=== PATIENT | female | born 1945 | race African-American/Black ===

== ENCOUNTER 2018-03-07 10:32 | Day surgery (SDC) | payer MEDICARE ==
[2018-03-06 13:12] VITALS: BMI 43.7
[2018-03-07] MEDS ORDERED: PROPOFOL 200 MG/20 ML VIAL ONE (13:57)
[2018-03-07] MEDS ORDERED: Lidocaine 1% PF 5 ML VIAL ONE (13:57)
--- NOTE | 2018-03-07 15:10 | OP ---
DATE OF PROCEDURE: 03/07/2018 PROCEDURE: Colonoscopy with snare polypectomy and biopsy. SURGEON: Phoenix Loomis M.D. ANESTHESIA: Pain medication given per Anesthesiology Department. PREOPERATIVE DIAGNOSIS: Diarrhea, unexplained. POSTOPERATIVE DIAGNOSES: 1. Multiple colon polyps (7), removed. 2. Sigmoid diverticulosis with severe luminal narrowing and constriction. PROCEDURE IN DETAIL: A written consent was obtained prior to procedure. After adequate sedation, re ctal exam performed was normal. Endoscope was advanced to the cecum with great difficulty going arou nd the sigmoid colon because of the severe constriction. The cecum was visualized and appeared mehran l. In the cecum, 4 sessile polyps ranging between 4-6 mm were noted and removed with snare electroca utery with good hemostasis. Two additional ascending colon polyps were removed with snare electrocau lynn with good hemostasis. There was one 5 mm sessile polyp noted in the transverse colon that was r emoved with snare electrocautery with good hemostasis. All polyps were retrieved. The ascending, tr ansverse and descending colon appeared normal. Biopsies were obtained to evaluate for microscopic co litis. There are numerous diverticula noted in the sigmoid colon with severe constriction of the col on lumen. The rectal vault appeared normal including retroflexion. The patient tolerated the proced ure well. ASSESSMENT: 1. Sigmoid diverticulosis with severe sigmoid stricturing and constriction. 2. Seven polyps removed. PLAN: Await biopsy result.
== END 2018-03-07 15:31 | disposition home or self-care (01) ==
LOC: SDC 10:32
PROVIDERS: ATTEND Internal Medicine Gastroenterology
PROC: 0DBK8ZX Excision of Ascending Colon, Via Natural or Artificial Opening Endoscopic, Diagnostic (ICD-10-PCS; principal; 2018-03-07)
PROC: 0DBL8ZX Excision of Transverse Colon, Via Natural or Artificial Opening Endoscopic, Diagnostic (ICD-10-PCS; 2018-03-07)
PROC: 0DBH8ZX Excision of Cecum, Via Natural or Artificial Opening Endoscopic, Diagnostic (ICD-10-PCS; 2018-03-07)
PROC: 0DBN8ZX Excision of Sigmoid Colon, Via Natural or Artificial Opening Endoscopic, Diagnostic (ICD-10-PCS; 2018-03-07)
DX: K52.9 Noninfective gastroenteritis and colitis, unspecified (principal); D12.0 Benign neoplasm of cecum; D12.2 Benign neoplasm of ascending colon; K57.30 Diverticulosis of large intestine without perforation or abscess without bleeding; I10 Essential (primary) hypertension; E11.9 Type 2 diabetes mellitus without complications; Z79.52 Long term (current) use of systemic steroids; Z91.040 Latex allergy status; Z88.2 Allergy status to sulfonamides; Z91.041 Radiographic dye allergy status; Z88.5 Allergy status to narcotic agent; Z88.8 Allergy status to other drugs, medicaments and biological substances; Z79.899 Other long term (current) drug therapy
CPT/HCPCS: 88305; J2001; J2704

== ENCOUNTER 2018-03-12 14:25 | Emergency (ER) | payer MEDICARE ==
[~2018-03-12 14:25] MED LIST: Gadobenate Dimeglumine 529 MG/1 ML (20ML VIAL) ONE
[2018-03-12 15:19] LABS: #Eosinphils 0.1 thou/uL (0.0-0.7); #Monocytes 0.6 thou/uL (0.11-0.59); #Neutrophils 4.3 thou/uL (1.40-6.50); %Basophils 0.6 % (0.0-1.0); %Eosinophils 1.8 % (0.0-10.0); %Lymphocytes 28.7 % (21.0-51.0); %Monocytes 7.8 % (0.0-10.0); %Neutrophils 61.1 % (42.0-75.0); Hemoglobin 13.2 g/dL (12.0-16.0); Mean Corpuscular HGB CONC 32.8 g/dL (32.0-36.0); Mean Corpuscular Hemoglobin 29.5 pg (27.0-31.0); Mean Corpuscular Volume 89.9 fL (78.0-98.0); Mean Platelet Volume 7.9 fL (7.4-10.4); Platelet Count 203 thou/uL (130-400); RBC Distribution Width 13.1 % (11.5-14.5); Red Blood Cell (RBC) Count 4.46 mill/uL (4.20-5.40); White Blood Cell (WBC) Count 7.1 thou/uL (4.8-10.8)
[2018-03-12 15:41] LABS: ALT (SGPT) 12 U/L (8-55); AST (SGOT) 11 U/L (5-34); Albumin 3.6 g/dL (3.4-4.8); Alkaline Phosphatase 106 U/L (40-150); Anion Gap 12 mmol/L (10-20); BUN (Urea Nitrogen) 11 mg/dL (9.8-20.1); Bilirubin, Total 0.4 mg/dL (0.2-1.2); Calc. Creatinine Clearance 0 mL/min (70-130); Calcium 9.6 mg/dL (7.8-10.44); Carbon Dioxide 23 mmol/L (23-31); Chloride 109 mmol/L (98-107); Estimated GFR-MDRD 82; Globulin 3.1 g/dL (2.4-3.5); Glucose 198 mg/dL (83-110); Potassium 4.2 mmol/L (3.5-5.1); Protein, Total 6.7 g/dL (6.0-8.3); Sodium 140 mmol/L (136-145)
--- NOTE | 2018-03-12 17:48 | CT ---
CT BRAIN WITHOUT CONTRAST: Date: 03/12/18 HISTORY: Headache. FINDINGS: Comparison made with exam of 12/31/14. Changes of cortical atrophy and chronic small vessel ischemic disease are again noted. The ventricula r size is appropriate and the basilar cisterns are patent. No evidence of acute infarct, hemorrhage, midline shift, or abnormal extra-axial fluid collections ar e seen. The bony calvarium is intact. The visualized paranasal sinuses and mastoid air cells are well aerated. IMPRESSION: No CT evidence of acute intracranial process. POS: [facility]
--- NOTE | 2018-03-12 22:10 | MRI ---
MRI BRAIN WITH AND WITHOUT CONTRAST: INDICATIONS: History of headaches. COMPARISON: Prior CT brain dated 03/12/2018. TECHNIQUE: Multiplanar, multisequence MR images were obtained of the brain with and without contrast, utilizing 20 mL of MultiHance. FINDINGS: No area of restricted diffusion is evident. There is mild chronic small vessel white matter ischemic change. The septum pellucidum and third ventricle are midline. The intracranial arterial flow voids appear within normal limits. There are small bilateral mastoid effusions. A small mucus retention cyst is seen within the right sphenoid sinus. No area of abnormal enhancement is demonstrated. IMPRESSION: 1. No acute intracranial abnormality. 2. Mild paranasal sinus disease. 3. Bilateral mastoid effusion. 4. Mild chronic small vessel white matter ischemic change. POS: [facility]
== END 2018-03-12 22:38 | disposition home or self-care (01) ==
LOC: ERS 14:25
DX: G43.909 Migraine, unspecified, not intractable, without status migrainosus (principal); E11.9 Type 2 diabetes mellitus without complications; E78.5 Hyperlipidemia, unspecified; I10 Essential (primary) hypertension; Z79.899 Other long term (current) drug therapy
CPT/HCPCS: 36415; 70450; 70553; 80053; 85025; 96365; 96375; A9579

== ENCOUNTER 2018-04-20 12:41 | Outpatient (CLI) | payer MEDICARE ==
--- NOTE | 2018-04-20 14:54 | MRI ---
CERVICAL SPINE WITHOUT CONTRAST; HISTORY: Neck pain. Cervical disk displacement. COMPARISON: None. TECHNIQUE: Multiplanar, multisequence MR images were obtained of the cervical spine without contrast. FINDINGS: Artifact from hardware is seen in the cervical spine, limiting evaluation. The vertebral bodies demo nstrate normal gross height without significant subluxation. The visualized cord demonstrates normal signal throughout. The craniocervical junction is unremarkab le. The paraspinal soft tissues are unremarkable. C2-C3: A moderate central protrusion is seen. No posterior facet arthrosis. Mild bilateral neural foraminal stenosis. Moderate central canal stenosis. C3-C4: A moderate disk osteophyte complex is seen. Artifact limits evaluation at this level. Mild bilateral posterior facet arthrosis. Mild central canal stenosis. The neural foramina cannot be yung quately assessed. C4-C5: This level appears fused. No posterior facet arthrosis. Artifact is seen within the central canal, from the hardware. There does not appear to be significant central canal stenosis or neural foraminal stenosis at this level. C5-C6: A moderate disk osteophyte complex is seen. No posterior facet arthrosis. Moderate central canal stenosis. Mild bilateral neural foraminal stenosis. C6-C7: This level cannot be assessed secondary to significant artifact. There is an appearance of c entral canal stenosis but this may be over-exaggerated. Mild bilateral posterior facet arthrosis. T he neural foramina cannot be assessed. POS: [facility]
== END 2018-04-20 12:42 | disposition home or self-care (01) ==
LOC: TBSIIMAG 12:41
PROVIDERS: ATTEND Psychiatry & Neurology Neurology
DX: M50.23 Other cervical disc displacement, cervicothoracic region (principal); R51 Headache
CPT/HCPCS: 72141

== ENCOUNTER 2018-11-01 09:15 | Outpatient (CLI) | payer MEDICARE ==
--- NOTE | 2018-11-01 11:11 | RAD ---
LEFT HEEL 2 VIEWS: Date: 11/01/18 HISTORY: Plantar fascial fibromatosis with left heel pain. COMPARISON: Right heel 2 views. FINDINGS: Calcaneal plantar and Achilles enthesophytes. There is minimally more prominent focal soft tissue swe lling more superficially overlying the heel on the plantar surface when compared to the right side. N o evidence for acute fracture or dislocation. IMPRESSION: Degenerative changes. Minimal soft tissue swelling of the plantar surface of the heel. No fracture or dislocation. POS: [facility]
--- NOTE | 2018-11-01 11:18 | RAD ---
RIGHT HEEL 2 VIEWS: Date: 11/01/18 HISTORY: Plantar fascial fibromatosis. FINDINGS: There is hypertrophy of the calcaneus at the plantar aponeurosis insertion site, as well as the Achil les tendon insertion site. No fracture. IMPRESSION: Changes of the calcaneus as described above. POS: [facility]
== END 2018-11-01 09:16 | disposition home or self-care (01) ==
LOC: BICRAD 09:15
PROVIDERS: ATTEND Podiatrist
DX: M72.2 Plantar fascial fibromatosis (principal); M19.072 Primary osteoarthritis, left ankle and foot; M79.89 Other specified soft tissue disorders

== ENCOUNTER 2019-03-31 13:46 | Inpatient (IN) | payer MEDICARE ==
[~2019-03-31 13:46] MED LIST changes: -Gadobenate Dimeglumine 529 MG/1 ML (20ML VIAL) ONE; +ISOVUE-370 76%-LOCM 1 ML ONE
[2019-03-31 14:01] LABS: #Basophils 0.1 thou/uL (0.0-0.2); #Eosinphils 0.2 thou/uL (0.0-0.7); #Lymphocytes 1.9 thou/uL (1.20-3.40); #Monocytes 0.5 thou/uL (0.11-0.59); #Neutrophils 3.4 thou/uL (1.40-6.50); %Basophils 0.9 % (0.0-1.0); %Eosinophils 2.7 % (0.0-10.0); %Lymphocytes 31.4 % (21.0-51.0); %Neutrophils 55.9 % (42.0-75.0); Hemoglobin 13.4 g/dL (12.0-16.0); Mean Corpuscular HGB CONC 33.5 g/dL (32.0-36.0); Mean Corpuscular Hemoglobin 29.9 pg (27.0-31.0); Mean Corpuscular Volume 89.2 fL (78.0-98.0); Mean Platelet Volume 8.7 fL (7.4-10.4); Platelet Count 193 thou/uL (130-400); RBC Distribution Width 13.1 % (11.5-14.5); Red Blood Cell (RBC) Count 4.47 mill/uL (4.20-5.40)
[2019-03-31] MEDS ORDERED: Dextrose 50% Abboject 50 ML SYRINGE ONE (14:01)
--- NOTE | 2019-03-31 14:09 | CT ---
Exam: Head CT without contrast HISTORY: Level 1 stroke. Left-sided weakness. Left arm draped, onset 1245 today COMPARISON: 03/12/2018 FINDINGS: Hemorrhage: No intraparenchymal hemorrhage or extra-axial hematoma. Brain parenchyma: Cortical wiley-white matter differentiation is preserved. No mass effect or midline shift. Basilar cisterns are patent. Ventricular system: Ventricles and sulci are patent and symmetric. Calvarium: Intact. Sinuses and mastoid air cells: Adequate aeration. IMPRESSION: No acute intracranial process. Results of study discussed with Dr. Jimenes 03/31/2019 at 2:06 PM Code CR
[2019-03-31 14:10] LABS: PTT 31.7 SEC (22.9-36.1); Prothrombin Time 14.3 SEC (12.0-14.7)
[2019-03-31 14:11] LABS: INR-International Normal Ratio 1.1
[2019-03-31 14:19] LABS: ALT (SGPT) 9 U/L (8-55); AST (SGOT) 14 U/L (5-34); Albumin 3.5 g/dL (3.4-4.8); Alkaline Phosphatase 76 U/L (40-150); Anion Gap 12 mmol/L (10-20); BUN (Urea Nitrogen) 11 mg/dL (9.8-20.1); Bilirubin, Total 0.5 mg/dL (0.2-1.2); CK (CPK) 111 U/L (29-168); Calc. Creatinine Clearance 0 mL/min (70-130); Calcium 9.5 mg/dL (7.8-10.44); Carbon Dioxide 22 mmol/L (23-31); Chloride 109 mmol/L (98-107); Estimated GFR-MDRD Greater than 90; Globulin 3.1 g/dL (2.4-3.5); Potassium 4.2 mmol/L (3.5-5.1); Protein, Total 6.6 g/dL (6.0-8.3); Sodium 139 mmol/L (136-145)
[2019-03-31 14:21] LABS: Glucose 46 mg/dL (83-110)
--- NOTE | 2019-03-31 14:27 | CT ---
CT ANGIOGRAM HEAD: CT ANGIOGRAM NECK: HISTORY: Level I stroke. Left arm drift. Left-sided weakness. COMPARISON: None. TECHNIQUE: CT angiogram of the head and neck are performed in the axial plane. Three-dimensional reformatted im ages are submitted for interpretation. FINDINGS: HEAD: No pathologic enhancement of the brain parenchyma. CT SOFT TISSUE NECK: Bilateral ocular lenses are appropriately located. Both globes are intact. Re trobulbar fat is preserved. Symmetric attenuation of the optic nerves and ocular rectus muscles. Aerodigestive tract is patent. No mucosal abnormality. Limited evaluation of the oral cavity due to dental amalgam artifact. Midline fatty raphae of the tongue is preserved. Epiglottis has a normal caliber. Pre-epiglottic fat is preserved. There is nonspecific fluid anterior to the C2 and C3 level, where there is evidence of a large osteophyte. Fluid is only contained to this level and may be reactive secondary to a large osteophyte. Symmetric attenuation of the parotid and submandibu lar glands. Symmetric attenuation of the sternocleidomastoid muscles. No evidence of lymphadenopathy by size criteria. Unremarkable thyroid gland. Upper mediastinum and lung apices are unremarkable. Cervical spine vertebral body height is maintained. There is evidence of post surgical change at C4, C5, and C6. Extensive osteophyte formation throughout the cervical spine. Th ere appears to be significant calcification along the posterior longitudinal ligament. There are varying degrees of moderate to severe central canal stenosis. Limited evaluation due to technique. There is also evidence of severe central canal stenosis in the upper thoracic spine due to posterior osteophyte formation. CT ANGIOGRAM: The visualized aortic arch has appropriate enhancement and luminal diameter. Right carotid: The right carotid artery origin, innominate artery, common carotid artery, carotid bi furcation and internal carotid artery have appropriate enhancement and luminal diameter. Minimal atherosclerosis in the right carotid bifurcation. Left carotid: The left carotid artery origin, common carotid artery, carotid bifurcation and interna l carotid artery have appropriate enhancement and luminal diameter. There is atherosclerosis of the left carotid bifurcation. Bilateral cervical vertebral arteries are patent throughout their course i n the neck. No significant stenosis. Bilateral subclavian arteries are unremarkable. HEAD: Distal cervical and intracranial internal carotid arteries have appropriate enhancement and emi jeff diameter. Anterior circulation: Symmetric enhancement and luminal diameter of the A1 and M1 segments. Proxima l A2 segments and proximal MCA branches have symmetric enhancement and luminal diameter. Posterior circulation: The visualized left PICA artery origin is unremarkable. Both vertebral arter ies supply a normal caliber basilar artery. Bilateral P1 segments have symmetric enhancement and luminal diameter. IMPRESSION: 1. Unremarkable CT angiogram of the head. 2. Unremarkable CT angiogram of the neck. No significant stenosis based upon NASCET criteria. 3. Extensive osteophyte formation and calcification of the posterior longitudinal ligament throughou t the cervical spine. Correlate for possible ankylosing spondylitis, given the overall degree of fusion changes. There is significant central canal stenosis and foraminal narrowing throughout the c ervical spine, incompletely evaluated. The results of the study were discussed with Dr. Jimenes on 03/31/2019 at 2:25 p.m. CODE CR Transcribed Date/Time: 03/31/2019 3:38 PM
[2019-03-31] MEDS ORDERED: Nitroglycerin 2% Ointment 1 INCH/1 GM Packet ONE (14:39)
[2019-03-31] MEDS ORDERED: Labetalol HCl 100 MG/20 ML VIAL ONE (15:55)
[2019-03-31] MEDS ORDERED: Aspirin 325 MG TAB ONE (15:55)
[2019-03-31 16:05] LABS: Bilirubin Negative (Negative); Blood, Urine Negative (Negative); Clarity Clear (Clear); Glucose, Urine (Dipstick) 100 mg/dL (Negative); Leukocyte Negative Leu/uL (Negative); Nitrite Negative (Negative); Protein, Urine (Dipstick) Negative (Neg-Trace); Urobilinogen Normal mg/dL (Less than 2)
[2019-03-31] MEDS ORDERED: niCARdipine 20MG In NaCl 20 MG/200 ML BAG ONE (16:11)
[2019-03-31 17:50] LABS: Troponin I Less than 0.010 ng/mL (< 0.028)
[2019-03-31] MEDS ORDERED: Acetaminophen 325 MG TAB PO PRN (18:45)
[2019-03-31] MEDS ORDERED: Ondansetron ODT 4 MG TAB SL PRN (18:45)
[2019-03-31] MEDS ORDERED: Sodium Chloride 0.9% 1,000 ML IV SCH (18:45)
[2019-03-31] MEDS ORDERED: Ondansetron PF 4 MG/2 ML Vial IVP PRN ×2 (18:45→19:51)
[2019-03-31] MEDS ORDERED: niCARdipine 20MG In NaCl 20 MG/200 ML BAG IVPB SCH (19:15)
[2019-03-31] MEDS ORDERED: Guaifenesin DM 100-10/5 ML UDCUP PO PRN (19:51)
[2019-03-31] MEDS ORDERED: Enalaprilat Dihydrate 1.25 MG/ML VIAL SLOW IVP PRN (19:51)
[2019-03-31] MEDS ORDERED: HYDROcodone/Acetaminophen 5/325 mg Tablet PO PRN (19:51)
[2019-03-31] MEDS ORDERED: Senokot S 8.6-50 MG TAB PO PRN (19:51)
[2019-03-31] MEDS ORDERED: Dextrose 50% Abboject 50 ML SYRINGE SLOW IVP PRN (19:51)
[2019-03-31] MEDS ORDERED: Bisacodyl 10 MG SUPP PR PRN (19:51)
[2019-03-31] MEDS ORDERED: Dextrose 5% in Water 1,000 ML IV PRN (19:51)
[2019-03-31] MEDS ORDERED: hydrALAZINE 20 MG/ML VIAL SLOW IVP PRN (19:51)
[2019-03-31] MEDS ORDERED: niCARdipine 25 MG in Sodium Chloride 0.9% 250 ML 250 ML IVPB SCH (20:00)
[2019-03-31] MEDS: Acetaminophen 325 MG TAB PO PRN (21:01)
[2019-03-31] MEDS: Nitroglycerin 2% Ointment 1 INCH/1 GM Packet TOP SCH (21:02)
[2019-03-31] MEDS: Carvedilol 25 MG TAB PO SCH (21:02)
[2019-03-31] MEDS: Famotidine 20 MG TAB PO SCH (21:02)
[2019-03-31] MEDS: Atorvastatin Calcium 40 MG TAB PO SCH (21:02)
--- NOTE | 2019-03-31 22:01 | HP ---
REASON FOR ADMISSION: TIA, hypertensive emergency, hypoglycemia, metabolic acidosis. HISTORY OF PRESENTING ILLNESS: The patient gives history of having off and on headaches from this morning. She had gone to [employer] with her friend. She got off around 10:45 p.m. While she was trying to get out of her car, patient developed slurred speech and became very weak. She could not walk. She also developed left facial droop and left-sided weakness. EMS was summoned. When EMS arrived, the patient's fingerstick glucose was 65. She was given dextrose 1 dose and on arrival in the ER, patient had level 1 stroke alert. She has had CT brain and CT angio brain both done, which showed no evidence of acute CVA. The patient's symptoms completely resolved on arrival. Initial NIH was 5 when EMS arrived with current NIH score of 0. On arrival in ER, patient's fingerstick glucose was 53, later serum sugars came back at 46. She was given another dose of D50 and a regular meal. A fingerstick later showed levels of 130. The patient also had systolic blood pressures of 204. She was placed on Cardene drip and nitroglycerin paste. Currently, she is feeling better. She was also confused on arrival. She is oriented and is responding well to questions now. PAST MEDICAL AND SURGICAL HISTORY: Diabetes mellitus type 2, dyslipidemia, obesity, prior history of neck surgery likely chronic cervical spondylosis, cholecystectomy, hysterectomy, gout. CURRENT MEDICATIONS: The patient is on: 1. K-Dur 20 mEq on alternate days. 2. Lasix 40 mg daily. 3. Crestor 5 mg daily. 4. Carvedilol 6.25 mg twice daily. 5. Benicar 40 mg p.o. daily. 6. Glimepiride 4 mg p.o. daily. 7. Colestipol 1 g twice daily. 8. Clonidine 0.1 mg p.o. q.a.m. and 2 tablets p.o. q.p.m. 9. Allopurinol 100 mg p.o. daily. 10. Ultram 50 mg daily. ALLERGIES: NO KNOWN DRUG ALLERGIES. PERSONAL HISTORY: Does not abuse alcohol or drugs. No history of smoking. FAMILY HISTORY: Mother at the age of 74. Father at the age of 73 years. He has had history of massive stroke. CODE STATUS: Do not attempt to resuscitate. I have discussed this with the patient at bedside in ER room #12/. Power of mergers and acquisitions attorney is her brother, Mr. Yossi Nair. REVIEW OF SYSTEMS: CONSTITUTIONAL: Negative for weight loss or gain, ability to conduct usual activities. SKIN: Negative for rash, itching. EYES: Negative for double vision, pain. ENT/MOUTH: Negative for nose bleeding, neck stiffness, pain, tenderness. CARDIOVASCULAR: Negative for palpitations, dyspnea on exertion, orthopnea. RESPIRATORY: Negative for shortness of breath, wheezing, cough, hemoptysis, fever or night sweats. GASTROINTESTINAL: Negative for poor appetite, abdominal pain, heartburn, nausea , vomiting, constipation, or diarrhea. GENITOURINARY: Negative for urgency, frequency, dysuria, nocturia. MUSCULOSKELETAL: Negative for pain, swelling. NEUROLOGIC/PSYCHIATRIC: Negative for anxiety, depression. ALLERGY/IMMUNOLOGIC: Negative for skin rash, bleeding tendency. PHYSICAL EXAMINATION: GENERAL: The patient is a 73-year-old female who is currently not in any acute distress. VITAL SIGNS: Blood pressure 210/104, pulse 56 per minute, respiratory rate 18 per minute, temperature 97.5 degrees Fahrenheit, saturating 97% on room air. NECK: Supple. No elevated JVD. HEENT: Eyes; extraocular muscles intact. Pupils reacting to light. Oral cavity mucous membranes are dry. No exudates or congestion. CARDIOVASCULAR: S1 and S2 heard. Regular rhythm. RESPIRATORY: Air entry 1+ bilateral. No rales or rhonchi. ABDOMEN: Soft, bowel sounds heard. No tenderness, rigidity, or guarding. EXTREMITIES: Mild peripheral edema. No calf tenderness. VASCULA: Peripheral pulses 1+ bilateral. No ischemic ulcerations or gangrene. CENTRAL NERVOUS SYSTEM: Cranial nerves are grossly intact. Motor system strength is 5/5 in all 4 extremities. Reflexes are 2+. Babinski is downgoing. Gait was not tested. Cerebellar signs are intact. PSYCHIATRIC: Patient's mood is a bit anxious, otherwise no hallucinations or delusions. LABS: Serum glucose 46, BUN 11, creatinine 0.7, serum bicarb 22. Troponin x2 negative. Albumin is 3.5. PT, INR, and PTT within normal limits. White count of 6, H and H 13 and 39, platelet count 193. IMAGING: CT brain without contrast done shows no acute intracranial process. CT angio brain was unremarkable. No significant stenosis was seen. Extensive osteophyte formation and calcification of the posterior longitudinal ligament throughout the cervical spine. Correlate for possible ankylosing spondylitis. There is significant central canal stenosis and foraminal narrowing throughout the C-spine. EKG, sinus bradycardia at 55 beats per minute. EKG is low voltage, questionable Q-waves in V2, V3. CLINICAL IMPRESSION AND PLAN: Patient will be admitted to ICU for hypertensive emergency with stroke-like symptoms and transient ischemic attack. Neurologically patient is intact with no acute CVA at present. She is on Cardene drip and nitroglycerin paste 1 inch on the chest wall. We will start patient on carvedilol 12.5 mg twice daily, Lasix 40 mg twice daily, Procardia XL 60 mg daily and Cozaar 100 mg daily. We will also place her on aspirin and Lipitor. MRI brain without contrast will be obtained for completion. Echo with 2D Doppler for LV function will be obtained. Lipid profile in the morning. NIH q.4 hourly checks. The patient's hypoglycemia appears to have resolved. We will check q.2 hourly fingerstick glucose and if the [id number] numbers are more than 200, this can be switched over to a.c. and at bedtime. She will be on a regular diet for tonight in view of hypoglycemia on arrival. Most likely, all her neurologic symptoms could be related to hypoglycemia. We will also consult Dr. Michelle for Neurology. Job ID: [id number] [facility]
[2019-04-01 06:06] LABS: Band 1 % (5-11); Eosinophils 1 % (0-10); Hemoglobin 12.6 g/dL (12.0-16.0); Lymphocytes 30 % (21-51); MDiff Complete? YES; Mean Corpuscular HGB CONC 33.4 g/dL (32.0-36.0); Mean Corpuscular Hemoglobin 29.6 pg (27.0-31.0); Mean Corpuscular Volume 88.7 fL (78.0-98.0); Monocytes 2 % (0-10); Neutrophil 66 % (42-75); Platelet Count 139 thou/uL (130-400); Platelet Morphology Comment Appears Adequate; RBC Distribution Width 13.1 % (11.5-14.5); RBC Morphology Normal; Red Blood Cell (RBC) Count 4.27 mill/uL (4.20-5.40); White Blood Cell (WBC) Count 7.4 thou/uL (4.8-10.8)
[2019-04-01 06:16] LABS: Anion Gap 12 mmol/L (10-20); BUN (Urea Nitrogen) 8 mg/dL (9.8-20.1); Calc. Creatinine Clearance 179 mL/min (70-130); Calcium 8.9 mg/dL (7.8-10.44); Carbon Dioxide 18 mmol/L (23-31); Cardiac Risk 2.5 (Less than 4.5); Chloride 111 mmol/L (98-107); Cholesterol 98 mg/dl (< 200 Desired); Estimated GFR-MDRD Greater than 90; Glucose 87 mg/dL (83-110); HDL Cholesterol 40 mg/dL (>60 Neg Risk); LDL Cholesterol, Calculated 47 mg/dL; Potassium 4.5 mmol/L (3.5-5.1); Sodium 136 mmol/L (136-145); Triglycerides 53 mg/dL (Less than 150)
[2019-04-01] MEDS: Losartan 25 MG TAB PO SCH (08:31)
[2019-04-01] MEDS: Allopurinol 100 MG TAB PO SCH (08:33)
[2019-04-01] MEDS: Famotidine 20 MG TAB PO SCH ×2 (08:33→20:27)
[2019-04-01] MEDS: Carvedilol 25 MG TAB PO SCH ×2 (08:33→20:23)
[2019-04-01] MEDS: Aspirin 81 mg Enteric Coated Tablet PO SCH (08:35)
[2019-04-01] MEDS: Enoxaparin Sodium 40 MG/0.4 ML SYRINGE SC SCH (08:35)
[2019-04-01] MEDS: Nitroglycerin 2% Ointment 1 INCH/1 GM Packet TOP SCH (08:35)
[2019-04-01] MEDS ORDERED: Furosemide 20 MG TAB PO SCH (09:00)
--- NOTE | 2019-04-01 10:36 | PDOC.HOSPP ---
- Subjective Encounter Date: 04/01/19 Encounter Time: 07:00 Subjective: is sitting and eating breakfast no sob or any weakness responds well to verbal stimuli - Objective Vital Signs & Weight: Vital Signs (12 hours) Temp 04/01/19 07:00 97.9 F 04/01/19 04:00 97.7 F 04/01/19 00:00 97.6 F Weight Weight 318 lb 9.087 oz Most Recent Monitor Data Heart Rate from ECG 67 NIBP 168/87 NIBP BP-Mean 114 Respiration from ECG 17 SpO2 99 I&O: 03/31/19 04/01/19 04/02/19 06:59 06:59 06:59 Intake Total 996 140 Output Total 950 0 Balance 46 140 Result Diagrams: 04/01/19 05:39 04/01/19 05:39 Additional Labs: Accuchecks 04/01/19 04/01/19 04/01/19 06:15 03:51 00:12 POC Glucose 78 109 116 H 03/31/19 03/31/19 03/31/19 21:58 18:57 17:50 POC Glucose 186 H 151 H 93 03/31/19 03/31/19 14:34 13:54 POC Glucose 114 H 53 L* ROS - Medication Medications: Active Medications Generic Name Dose Route Start Last Admin Trade Name Freq PRN Reason Stop Dose Admin Acetaminophen 650 mg 03/31/19 19:51 03/31/19 21:01 Tylenol PO 650 mg Q4H PRN Administration Headache/Fever/Mild Pain (1-3) Allopurinol 100 mg 04/01/19 09:00 04/01/19 08:33 Zyloprim PO 100 mg DAILY ELLEN Administration Aspirin 81 mg 04/01/19 09:00 04/01/19 08:35 Ecotrin PO 81 mg DAILY ELLEN Administration Atorvastatin Calcium 40 mg 03/31/19 21:00 03/31/19 21:02 Lipitor PO 40 mg HS ELLEN Administration Carvedilol 12.5 mg 03/31/19 21:00 04/01/19 08:33 Coreg PO 12.5 mg BID ELLEN Administration Enoxaparin Sodium 40 mg 04/01/19 09:00 04/01/19 08:35 Lovenox SC 40 mg 0900 ELLEN Administration Famotidine 20 mg 03/31/19 21:00 04/01/19 08:33 Pepcid PO 20 mg BID ELLEN Administration Furosemide 40 mg 04/01/19 09:00 04/01/19 08:32 Lasix PO 40 mg 0900,1400 ELLEN Administration Nicardipine HCl 25 mg/ Sodium 260 mls @ 0 mls/hr 03/31/19 20:00 03/31/19 21: 35 Chloride IVPB 260 mls INF ELLEN Administration Protocol Titrate Losartan Potassium 100 mg 04/01/19 09:00 04/01/19 08:31 Cozaar PO 100 mg DAILY ELLEN Administration Nitroglycerin 1 inch 03/31/19 21:00 04/01/19 08:35 Nitro-Bid 2% Ointment TOP 1 inch BID ELLEN Administration - Exam NAD, awake alert Eye: PERRL, anicteric sclera ENT: normocephalic atraumatic, no oropharyngeal lesions Neck: supple, no JVD Heart: RRR, no murmur, no rubs Respiratory: no wheezes, no rales Gastrointestinal: soft, non-tender, non-distended, normal bowel sounds Extremities: no cyanosis, no edema Neurological: CN's grossly intact, no focal deficits Psychiatric: normal affect, A&O x 3 Hosp A/P (1) Hypertensive emergency Code(s): I16.1 - HYPERTENSIVE EMERGENCY Status: Resolved (2) TIA (transient ischemic attack) Code(s): G45.9 - TRANSIENT CEREBRAL ISCHEMIC ATTACK, UNSPECIFIED Status: Resolved (3) Obesity Code(s): E66.9 - OBESITY, UNSPECIFIED Status: Chronic Qualifiers: Obesity classification: adult class 3 (BMI >= 40) (4) Hypoglycemia Code(s): E16.2 - HYPOGLYCEMIA, UNSPECIFIED Status: Resolved (5) DM type 2 (diabetes mellitus, type 2) Status: Chronic Qualifiers: Diabetes mellitus exterminator helper termite insulin use: without exterminator helper termite use (6) Dyslipidemia Code(s): E78.5 - HYPERLIPIDEMIA, UNSPECIFIED Status: Chronic - Plan is off cardene drip, sbp around 120's this am will tx to stroke unit is on asp, procardia xl, cozaar, coreg, lipitor will add home dm meds later this afternoon hypoglycemia has resolved mobilize as tolerated with PT will f/u MRI, echo results
[2019-04-01] MEDS ORDERED: HumaLOG 300 UNITS/3 ML VIAL SC PRN (12:29)
[2019-04-01] MEDS ORDERED: Dextrose 50% Abboject 50 ML SYRINGE SLOW IVP PRN (12:29)
--- NOTE | 2019-04-01 14:37 | MRI ---
Exam: Brain MRI without contrast HISTORY: TIA. CVA. Left-sided weakness. Slurred speech. COMPARISON: 03/12/2018 FINDINGS: Calvarial marrow signal intensity: Appropriate T1 signal Gradient echo sequence: No hemorrhage Brain parenchyma: No mass, mass effect or midline shift. Brain volume, age-appropriate. Cortical wiley-white matter differentiation: Preserved Restricted diffusion: Central arterial flow voids are maintained. Absent restricted diffusion White matter signal intensities: T2, FLAIR white matter hyperintensities due to chronic small vessel ischemic changes Sinuses: Adequate aeration of the paranasal sinuses and mastoid air cells. IMPRESSION: Absent restricted diffusion. No acute infarction.
--- NOTE | 2019-04-01 18:09 | CON ---
DATE OF CONSULTATION: 04/01/2019 CONSULTING PHYSICIAN: Hospitalist Service. IMPRESSION: 1. Transient left hand weakness and headache along with hypertension suggestive of hypertensive urgency. 2. Mild forgetfulness, which resulted in her forgetting her medication. PLAN: Recommended aspirin, but she refuses it due to problems with nose bleeds. HISTORY OF PRESENT ILLNESS: Ms. Vang is a 73-year-old black female with a known history of diabetes and hypertension, who was at [employer] when she started feeling poorly. She developed a headache and a feeling of dizziness. She started noticing some trouble with her left hand. The symptoms lasted about 30 minutes. She came in quite hypertensive after being put on a Cardene drip. Her blood pressure was brought under control. Her headache and dizziness resolved. She is not having any further focal symptoms. She denies a history of focal symptoms in the past. Her son reports that she is getting more forgetful. She lives alone and has care for her own medications. She apparently forgot to take her medicine prior to going to [employer]. PAST MEDICAL HISTORY: As listed above. ALLERGIES: NONE. SOCIAL HISTORY: No tobacco use. FAMILY HISTORY: Noncontributory. MEDICATION LIST: Reviewed. REVIEW OF SYSTEMS: Ten-system review of systems is otherwise negative. PHYSICAL EXAMINATION: VITAL SIGNS: Pulse 60 in normal sinus rhythm. Blood pressure 170/80s, respirations 14, and saturations 99%. HEENT: Pupils are equal and reactive. Conjunctivae clear. Oropharynx clear. NECK: Supple. EXTREMITIES: No cyanosis or edema. NEUROLOGIC: She is alert and cooperative. Her speech is fluent and clear. Cranial nerves are intact throughout. Motor exam shows equal strength. There is no fix or drift. She can stand independently. No abnormal movements are seen. DIAGNOSTIC STUDIES: MRI of the brain was notable for small-vessel ischemic changes, which were chronic, but nothing acute. CT angiogram showed no major vessel stenosis. Cholesterol ratio was 2.5. SUMMARY: This is an elderly lady, who likely had a hypertensive crisis due to forgetting her medications. She is back to her baseline. Her son will make attempts to provide some oversight at home to ensure that she is more consistent with her medication. Job ID: [id number]
[2019-04-01] MEDS: Atorvastatin Calcium 40 MG TAB PO SCH (20:22)
[2019-04-02] MEDS: Losartan 25 MG TAB PO SCH (08:20)
[2019-04-02] MEDS: Hydrochlorothiazide 25 MG TAB PO SCH (08:20)
[2019-04-02] MEDS: Carvedilol 25 MG TAB PO SCH ×2 (08:20→19:53)
[2019-04-02] MEDS: Famotidine 20 MG TAB PO SCH ×2 (08:20→19:54)
[2019-04-02] MEDS: NIFEdipine XL 60 MG TAB PO SCH (08:21)
[2019-04-02] MEDS: Enoxaparin Sodium 40 MG/0.4 ML SYRINGE SC SCH (08:21)
[2019-04-02] MEDS: Allopurinol 100 MG TAB PO SCH (08:21)
[2019-04-02] MEDS: Aspirin 81 mg Enteric Coated Tablet PO SCH (08:21)
[2019-04-02] MEDS: HumaLOG 300 UNITS/3 ML VIAL SC PRN (11:20)
[2019-04-02] MEDS ORDERED: Furosemide 40 MG/4 ML VIAL SLOW IVP SCH (13:30)
[2019-04-02] MEDS: hydrALAZINE 25 MG TAB PO SCH (19:53)
[2019-04-02] MEDS: Atorvastatin Calcium 40 MG TAB PO SCH (19:53)
--- NOTE | 2019-04-02 22:52 | PDOC.HOSPP ---
- Subjective Subjective: Patient says she generally has not been feeling great, but cannot be more specific. - Objective Vital Signs & Weight: Vital Signs (12 hours) Temp Pulse BP Pulse Ox 04/02/19 20:00 98.1 F 99 04/02/19 19:53 73 177/97 H 04/02/19 16:00 97.6 F 04/02/19 12:00 98.5 F Weight Weight 318 lb 9.087 oz Most Recent Monitor Data Heart Rate from ECG 76 NIBP 179/88 NIBP BP-Mean 118 Respiration from ECG 21 SpO2 100 I&O: 04/01/19 04/02/19 04/03/19 06:59 06:59 06:59 Intake Total 996 290 850 Output Total 506 3808 5947 Balance 87 -8184 -6596 Result Diagrams: 04/01/19 05:39 04/01/19 05:39 Additional Labs: Accuchecks 04/02/19 04/02/19 04/02/19 19:59 16:10 11:10 POC Glucose 182 H 118 H 165 H 04/02/19 05:59 POC Glucose 108 Hospitalist ROS - Medication Medications: Active Medications Generic Name Dose Route Start Last Admin Trade Name Freq PRN Reason Stop Dose Admin Acetaminophen 650 mg 03/31/19 19:51 03/31/19 21:01 Tylenol PO 650 mg Q4H PRN Administration Headache/Fever/Mild Pain (1-3) Allopurinol 100 mg 04/01/19 09:00 04/02/19 08:21 Zyloprim PO 100 mg DAILY ELLEN Administration Aspirin 81 mg 04/01/19 09:00 04/02/19 08:21 Ecotrin PO 81 mg DAILY ELLEN Administration Atorvastatin Calcium 40 mg 03/31/19 21:00 04/02/19 19:53 Lipitor PO 40 mg HS ELLEN Administration Carvedilol 12.5 mg 03/31/19 21:00 04/02/19 19:53 Coreg PO 12.5 mg BID ELLEN Administration Enoxaparin Sodium 40 mg 04/01/19 09:00 04/02/19 08:21 Lovenox SC 40 mg 0900 ELLEN Administration Famotidine 20 mg 03/31/19 21:00 04/02/19 19:54 Pepcid PO 20 mg BID ELLEN Administration Hydralazine HCl 25 mg 04/02/19 21:00 04/02/19 19:53 Apresoline PO 25 mg BID ELLEN Administration Hydrochlorothiazide 25 mg 04/02/19 09:00 04/02/19 08:20 Hydrochlorothiazide PO 25 mg DAILY ELLEN Administration Insulin Human Lispro 0 units 04/01/19 12:29 04/02/19 11:20 Humalog SC 2 unit .MODERATE SLIDING SC PRN Administration Moderate Correctional Scale Losartan Potassium 100 mg 04/01/19 09:00 04/02/19 08:20 Cozaar PO 100 mg DAILY ELLEN Administration Nifedipine 60 mg 04/02/19 09:00 04/02/19 08:21 Procardia Xl PO 60 mg DAILY ELLEN Administration - Exam General Appearance: NAD, awake alert Heart: RRR, no murmur, no gallops, no rubs, normal peripheral pulses Respiratory: CTAB, no wheezes, no rales, no ronchi, normal chest expansion, no tachypnea, normal percussion Gastrointestinal: soft, non-tender, non-distended, normal bowel sounds, no palpable masses, no hepatomegaly, no splenomegaly, no bruit Extremities: no cyanosis, no clubbing, no edema Skin: normal turgor, no lesions, no rashes Neurological: CN's grossly intact Musculoskeletal: normal tone, normal strength, no muscle wasting Psychiatric: normal affect Psychiatric - other findings: Forgetful and confused, but pleasant. Hosp A/P (1) DM type 2 (diabetes mellitus, type 2) Status: Chronic Qualifiers: Diabetes mellitus supervisor intermediates insulin use: without snf use (2) Dyslipidemia Code(s): E78.5 - HYPERLIPIDEMIA, UNSPECIFIED Status: Chronic (3) Obesity Code(s): E66.9 - OBESITY, UNSPECIFIED Status: Chronic Qualifiers: Obesity classification: adult class 3 (BMI >= 40) (4) Hypertensive emergency Code(s): I16.1 - HYPERTENSIVE EMERGENCY Status: Resolved (5) TIA (transient ischemic attack) Code(s): G45.9 - TRANSIENT CEREBRAL ISCHEMIC ATTACK, UNSPECIFIED Status: Resolved - Plan Consults: other Can move out of ICU to stroke floor whenever bed becomes available. On Procardia and ARB. Borderline resting bradycardia. Will not push the CCB or add BB. Add oral hydralazine as the pressure is still not well controlled. Difficult in that she is non-compliant due to memory issues. Will need CM assistance.
[2019-04-03] MEDS: Allopurinol 100 MG TAB PO SCH (08:30)
[2019-04-03] MEDS: Famotidine 20 MG TAB PO SCH ×2 (08:30→20:31)
[2019-04-03] MEDS: hydrALAZINE 25 MG TAB PO SCH ×2 (08:30→20:31)
[2019-04-03] MEDS: NIFEdipine XL 60 MG TAB PO SCH (08:30)
[2019-04-03] MEDS: Aspirin 81 mg Enteric Coated Tablet PO SCH (08:30)
[2019-04-03] MEDS: Hydrochlorothiazide 25 MG TAB PO SCH (08:31)
[2019-04-03] MEDS: Carvedilol 25 MG TAB PO SCH ×2 (08:31→20:31)
[2019-04-03] MEDS: Losartan 25 MG TAB PO SCH (08:31)
[2019-04-03] MEDS: Enoxaparin Sodium 40 MG/0.4 ML SYRINGE SC SCH (08:35)
--- NOTE | 2019-04-03 19:05 | PDOC.HOSPP ---
- Subjective Encounter Date: 04/03/19 Encounter Time: 18:50 Subjective: f/u for HTN urgency and TIA. Work up negative for acute CVA. Remains confused and wandering in halls per nursing. - Objective Vital Signs & Weight: Vital Signs (12 hours) Temp Pulse Pulse Pulse BP BP BP 04/03/19 15:17 96.6 F L 04/03/19 11:28 96.7 F L 04/03/19 09:13 80 78 157/87 H 165/75 H 04/03/19 08:30 73 157/91 H 04/03/19 08:00 Pulse Ox Pulse Ox Pulse Ox 04/03/19 15:17 04/03/19 11:28 04/03/19 09:13 95 95 04/03/19 08:30 04/03/19 08:00 92 L Weight Weight 318 lb 9.087 oz Most Recent Monitor Data Heart Rate from ECG 81 NIBP 168/97 NIBP BP-Mean 120 Respiration from ECG 15 SpO2 98 I&O: 04/02/19 04/03/19 04/04/19 06:59 06:59 06:59 Intake Total 284 351 9098 Output Total 3125 4230 0 Balance -2835 -3380 1000 Result Diagrams: 04/01/19 05:39 04/01/19 05:39 Additional Labs: Accuchecks 04/03/19 04/03/19 04/03/19 16:52 10:43 06:43 POC Glucose 154 H 193 H 148 H 04/02/19 19:59 POC Glucose 182 H Radiology Reviewed by me: Yes (MRI brain - no acute process) EKG Reviewed by me: Yes (Tele - SR) Hospitalist ROS - Medication Medications: Active Medications Generic Name Dose Route Start Last Admin Trade Name Freq PRN Reason Stop Dose Admin Acetaminophen 650 mg 03/31/19 19:51 03/31/19 21:01 Tylenol PO 650 mg Q4H PRN Administration Headache/Fever/Mild Pain (1-3) Allopurinol 100 mg 04/01/19 09:00 04/03/19 08:30 Zyloprim PO 100 mg DAILY ELLEN Administration Aspirin 81 mg 04/01/19 09:00 04/03/19 08:30 Ecotrin PO 81 mg DAILY ELLEN Administration Atorvastatin Calcium 40 mg 03/31/19 21:00 04/02/19 19:53 Lipitor PO 40 mg HS ELLEN Administration Carvedilol 12.5 mg 03/31/19 21:00 04/03/19 08:31 Coreg PO 12.5 mg BID ELLEN Administration Enoxaparin Sodium 40 mg 04/01/19 09:00 04/03/19 08:35 Lovenox SC 40 mg 0900 ELLEN Administration Famotidine 20 mg 03/31/19 21:00 04/03/19 08:30 Pepcid PO 20 mg BID ELLEN Administration Hydralazine HCl 25 mg 04/02/19 21:00 04/03/19 08:30 Apresoline PO 25 mg BID ELLEN Administration Hydrochlorothiazide 25 mg 04/02/19 09:00 04/03/19 08:31 Hydrochlorothiazide PO 25 mg DAILY ELLEN Administration Insulin Human Lispro 0 units 04/01/19 12:29 04/02/19 11:20 Humalog SC 2 unit .MODERATE SLIDING SC PRN Administration Moderate Correctional Scale Losartan Potassium 100 mg 04/01/19 09:00 04/03/19 08:31 Cozaar PO 100 mg DAILY ELLEN Administration Nifedipine 60 mg 04/02/19 09:00 04/03/19 08:30 Procardia Xl PO 60 mg DAILY ELLEN Administration - Exam General Appearance: NAD, awake alert Eye: PERRL, anicteric sclera ENT: normocephalic atraumatic, no oropharyngeal lesions Neck: supple, symmetric, no JVD, no thyromegaly Heart: RRR, no murmur, no gallops, no rubs, normal peripheral pulses Respiratory: CTAB, no wheezes, no rales, no ronchi Gastrointestinal: soft, non-tender, non-distended, normal bowel sounds Extremities: no cyanosis, 1+ LE edema Skin: normal turgor, no lesions Neurological: CN's grossly intact, no new deficit Psychiatric: oriented to person, oriented to place Hosp A/P (1) TIA (transient ischemic attack) Code(s): G45.9 - TRANSIENT CEREBRAL ISCHEMIC ATTACK, UNSPECIFIED Status: Acute Plan: Continue ASA/Lipitor (2) HTN (hypertension) Code(s): I10 - ESSENTIAL (PRIMARY) HYPERTENSION Status: Chronic Qualifiers: Hypertension type: essential hypertension Qualified Code(s): I10 - Essential (primary) hypertension Plan: Continue current BP regimen, titrate to optimal response (3) Hypertensive emergency Code(s): I16.1 - HYPERTENSIVE EMERGENCY Status: Resolved Plan: Resolved (4) DM type 2 (diabetes mellitus, type 2) Status: Chronic Qualifiers: Diabetes mellitus intermediate insulin use: without evs tech use Plan: ISS, serial accuchecks - Plan PT/OT, social work associate, DVT proph w/SCDs Stable currently Continue ASA/Lipitor Titrate BP regimen for optimal response CM for assistance with SNF options PT for functional assessment
[2019-04-03] MEDS: Acetaminophen 325 MG TAB PO PRN (20:30)
[2019-04-03] MEDS: Atorvastatin Calcium 40 MG TAB PO SCH (20:31)
[2019-04-04] MEDS: Aspirin 81 mg Enteric Coated Tablet PO SCH (09:41)
[2019-04-04] MEDS: Allopurinol 100 MG TAB PO SCH (09:41)
[2019-04-04] MEDS: Carvedilol 25 MG TAB PO SCH ×2 (09:42→22:34)
[2019-04-04] MEDS: hydrALAZINE 25 MG TAB PO SCH ×2 (09:42→22:34)
[2019-04-04] MEDS: Enoxaparin Sodium 40 MG/0.4 ML SYRINGE SC SCH (09:42)
[2019-04-04] MEDS: Famotidine 20 MG TAB PO SCH ×2 (09:42→22:34)
[2019-04-04] MEDS: Hydrochlorothiazide 25 MG TAB PO SCH (09:43)
[2019-04-04] MEDS: Losartan 25 MG TAB PO SCH (09:43)
[2019-04-04] MEDS: NIFEdipine XL 60 MG TAB PO SCH (09:44)
[2019-04-04] MEDS: HumaLOG 300 UNITS/3 ML VIAL SC PRN (11:29)
--- NOTE | 2019-04-04 15:40 | PDOC.HOSPP ---
- Subjective Encounter Date: 04/04/19 Encounter Time: 15:30 Subjective: f/u for HTN urgency with encephalopathy and ? dementia. Feels better overall. Ambulated with SBA and RW per nursing. Mentally feels clearer. - Objective Vital Signs & Weight: Vital Signs (12 hours) Temp Pulse Pulse Pulse Resp BP BP 04/04/19 12:50 67 70 139/92 H 04/04/19 12:42 97.7 F 68 14 04/04/19 09:44 68 141/71 H 04/04/19 09:42 68 141/71 H 04/04/19 08:30 97.4 F L 68 16 04/04/19 07:10 04/04/19 04:23 97.9 F 80 16 BP BP Pulse Ox 04/04/19 12:50 134/68 04/04/19 12:42 143/76 H 97 04/04/19 09:44 04/04/19 09:42 04/04/19 08:30 141/71 H 97 04/04/19 07:10 97 04/04/19 04:23 122/78 96 Weight Weight 318 lb 9.087 oz Most Recent Monitor Data Heart Rate from ECG 97 NIBP 174/99 NIBP BP-Mean 124 Respiration from ECG 15 SpO2 96 I&O: 04/03/19 04/04/19 04/05/19 06:59 06:59 06:59 Intake Total 850 1000 600 Output Total 4230 0 Balance -3380 1000 600 Result Diagrams: 04/01/19 05:39 04/01/19 05:39 Additional Labs: Accuchecks 04/04/19 04/04/19 04/03/19 10:47 05:45 20:25 POC Glucose 180 H 170 H 183 H 04/03/19 16:52 POC Glucose 154 H Radiology Reviewed by me: Yes (Echo - EF 55-60%, diast dysfxn) EKG Reviewed by me: Yes (Tele - Sinus soledad) Hospitalist ROS - Medication Medications: Active Medications Generic Name Dose Route Start Last Admin Trade Name Freq PRN Reason Stop Dose Admin Acetaminophen 650 mg 03/31/19 19:51 04/03/19 20:30 Tylenol PO 650 mg Q4H PRN Administration Headache/Fever/Mild Pain (1-3) Allopurinol 100 mg 04/01/19 09:00 04/04/19 09:41 Zyloprim PO 100 mg DAILY ELLEN Administration Aspirin 81 mg 04/01/19 09:00 04/04/19 09:41 Ecotrin PO 81 mg DAILY ELLEN Administration Atorvastatin Calcium 40 mg 03/31/19 21:00 04/03/19 20:31 Lipitor PO 40 mg HS ELLEN Administration Carvedilol 12.5 mg 03/31/19 21:00 04/04/19 09:42 Coreg PO 12.5 mg BID ELLEN Administration Enoxaparin Sodium 40 mg 04/01/19 09:00 04/04/19 09:42 Lovenox SC 40 mg 0900 ELLEN Administration Famotidine 20 mg 03/31/19 21:00 04/04/19 09:42 Pepcid PO 20 mg BID ELLEN Administration Hydralazine HCl 25 mg 04/02/19 21:00 04/04/19 09:42 Apresoline PO 25 mg BID ELLEN Administration Hydrochlorothiazide 25 mg 04/02/19 09:00 04/04/19 09:43 Hydrochlorothiazide PO 25 mg DAILY ELLEN Administration Insulin Human Lispro 0 units 04/01/19 12:29 04/04/19 11:29 Humalog SC 2 unit .MODERATE SLIDING SC PRN Administration Moderate Correctional Scale Losartan Potassium 100 mg 04/01/19 09:00 04/04/19 09:43 Cozaar PO 100 mg DAILY ELLEN Administration Nifedipine 60 mg 04/02/19 09:00 04/04/19 09:44 Procardia Xl PO 60 mg DAILY ELLEN Administration - Exam General Appearance: NAD, awake alert Eye: PERRL, anicteric sclera ENT: normocephalic atraumatic, no oropharyngeal lesions Neck: supple, symmetric, no JVD, no thyromegaly, no lymphadenopathy Heart: RRR, no murmur, no gallops, no rubs, normal peripheral pulses Respiratory: CTAB, no wheezes, no rales, no ronchi, normal chest expansion Gastrointestinal: soft, non-tender, non-distended, normal bowel sounds, no palpable masses Extremities: no cyanosis, no clubbing, no edema Skin: normal turgor, no lesions Neurological: CN's grossly intact, no new deficit Musculoskeletal: normal tone Psychiatric: oriented to person, oriented to place, oriented to time Hosp A/P (1) TIA (transient ischemic attack) Code(s): G45.9 - TRANSIENT CEREBRAL ISCHEMIC ATTACK, UNSPECIFIED Status: Acute Plan: Likely given HTN urgency, component of HTN encephalopathy (2) HTN (hypertension) Code(s): I10 - ESSENTIAL (PRIMARY) HYPERTENSION Status: Chronic Qualifiers: Hypertension type: essential hypertension Qualified Code(s): I10 - Essential (primary) hypertension Plan: Improved trend, increase Hydralazine 25mg TID, continue Coreg (3) Hypertensive emergency Code(s): I16.1 - HYPERTENSIVE EMERGENCY Status: Resolved (4) DM type 2 (diabetes mellitus, type 2) Status: Chronic Qualifiers: Diabetes mellitus exterminator helper termite insulin use: without exterminator helper termite use - Plan plan discussed w/ family, PT/OT, home health care social worker, out of bed/ambulate Stable currently Continue ASA/Lipitor Increase Hydralazine 25mg TID CM for assistance with HH/PT PT for functional assessment Likely home in 24h
[2019-04-04] MEDS ORDERED: hydrALAZINE 25 MG TAB PO SCH (16:00)
[2019-04-04] MEDS: Atorvastatin Calcium 40 MG TAB PO SCH (22:34)
[2019-04-05] MEDS: Aspirin 81 mg Enteric Coated Tablet PO SCH (09:14)
[2019-04-05] MEDS: Allopurinol 100 MG TAB PO SCH (09:14)
[2019-04-05] MEDS: Famotidine 20 MG TAB PO SCH (09:14)
[2019-04-05] MEDS: Carvedilol 25 MG TAB PO SCH (09:14)
[2019-04-05] MEDS: Hydrochlorothiazide 25 MG TAB PO SCH (09:15)
[2019-04-05] MEDS: Losartan 25 MG TAB PO SCH (09:15)
[2019-04-05] MEDS: Enoxaparin Sodium 40 MG/0.4 ML SYRINGE SC SCH (09:16)
[2019-04-05] MEDS: hydrALAZINE 25 MG TAB PO SCH (10:18)
[2019-04-05] MEDS: NIFEdipine XL 60 MG TAB PO SCH (10:19)
[2019-04-05 11:47] VITALS: BP 126/65; TEMP 97.6
--- NOTE | 2019-04-05 21:09 | DIS ---
DATE OF ADMISSION: 03/31/2019 DATE OF DISCHARGE: 04/05/2019 DISCHARGE DIAGNOSES: 1. Hypertensive emergency, resolved. 2. Transient ischemic attack, improved. 3. Hypertensive encephalopathy, resolved. 4. Hypertension, improved. 5. Diabetes mellitus type 2 with episodic hypoglycemia. 6. Deconditioning. PERTINENT LABORATORY AND X-RAY FINDINGS: Total cholesterol 98, triglycerides 53, HDL 40, LDL 47, glucose ranged between 46 to 142. CBC within normal limits. CT of the brain without contrast dated 03/31/2019, showed no acute intracranial process. CT angiogram of the [place] of [place] dated 03/31/2019, showed no significant stenosis. MRI of the brain dated 04/01/2019, showed no acute process. 2D transthoracic echocardiogram dated 04/01/2019, showed ejection fraction of 55% to 60%. Mild mitral and tricuspid valve regurgitation. HOSPITAL COURSE: The patient was initially admitted after presenting with hypertensive emergency with associated hypertensive encephalopathy. The patient was also noted with hypoglycemia, treated with one amp of D50 and IV fluids. The patient was initially placed in the intensive care unit for hypertensive emergency and initiated on antihypertensive regimen with additional Procardia and Cozaar to her blood pressure regimen. Neuroimaging of the brain showed no evidence of acute infarct including MRI modality. The patient was evaluated by the Neurology Service with recommendations for risk factor modification and hypertensive control. The patient was evaluated by the Physical Therapy Service due to deconditioning and concern for fall risk. The patient was deemed an appropriate candidate for ongoing outpatient physical therapy through home health services. Overall, the patient did remain clinically stable through the hospital course, tolerating regular oral intake and voiding appropriately. I have examined the patient at the time of discharge and discussed followup instructions with the family. The patient and family verbalized understanding and in agreement, ready for discharge on 04/05/2019. DISCHARGE MEDICATIONS: 1. Allopurinol 100 mg p.o. daily. 2. Carvedilol 12.5 mg p.o. b.i.d. 3. Vitamin D3 5000 units p.o. daily. 4. Colestid 2 g p.o. b.i.d. 5. Lasix 40 mg p.o. daily. 6. Benicar 40 mg p.o. daily. 7. K-Dur 20 mEq p.o. daily. 8. Crestor 5 mg p.o. at bedtime. 9. Tramadol 50 mg p.o. daily. 10. Enteric-coated aspirin 81 mg p.o. daily. 11. Amaryl 2 mg p.o. daily. 12. Hydralazine 25 mg p.o. b.i.d. 13. Procardia XL 60 mg p.o. daily. FOLLOWUP: The patient may follow up with her primary care provider, Dr. Nannette Lincoln within 7 days of discharge. CONDITION ON DISCHARGE: Stable. ACTIVITY: Ad-selina. Rolling walker with standby assistance. SPECIAL INSTRUCTIONS: The patient will receive home health services including physical and occupational therapy. DIET: ADA and heart healthy. CODE STATUS: Do not attempt resuscitation. DISPOSITION: Home with home health services on 04/05/2019. TIME SPENT: Total time preparing and coordinating discharge, 34 minutes. Job ID: [id number]
== END 2019-04-05 13:28 | disposition home health service (06) | DRG 305 ==
LOC: ERS 13:46 → CCU 18:38 → IMCU/EMU 04-03 09:45 → 2SE 04-03 22:31
PROVIDERS: ADMIT Internal Medicine; ATTEND Internal Medicine
DX: I16.1 Hypertensive emergency (principal); I67.4 Hypertensive encephalopathy; Z68.41 Body mass index [BMI] 40.0-44.9, adult; G45.9 Transient cerebral ischemic attack, unspecified; E11.649 Type 2 diabetes mellitus with hypoglycemia without coma; Z66 Do not resuscitate; E78.5 Hyperlipidemia, unspecified; E66.9 Obesity, unspecified; M10.9 Gout, unspecified; I10 Essential (primary) hypertension; Z91.14 Patient's other noncompliance with medication regimen; Z79.84 Long term (current) use of oral hypoglycemic drugs; Z79.891 Long term (current) use of opiate analgesic; Z79.899 Other long term (current) drug therapy
CPT/HCPCS: 36415; 36416; 51701; 70450; 70496; 70498; 70551; 80048; 80053; 80061; 81003; 82550; 84484; 85025; 85610; 85730; 93005; 93306; 94760; 96365; 96366; 96375; A4353; J1650; J1940; J7050; Q9966

== ENCOUNTER 2020-01-20 13:47 | Observation (INO) | payer MEDICARE ==
[2020-01-20] MEDS ORDERED: cloNIDine 0.1 MG TAB ONE (15:25)
[2020-01-20] MEDS ORDERED: hydrALAZINE 25 MG TAB ONE (15:28)
--- NOTE | 2020-01-20 15:28 | CT ---
CT Brain WO Con: 01/20/2020 2:34 PM CLINICAL HISTORY: Generalized weakness. IMAGING TECHNIQUE: Multiple CT images were obtained of the brain without IV contrast. COMPARISON: CT of the brain dated March 31, 2019 and an MR of the brain dated April 01, 2019 FINDINGS: BRAIN: Evidence of infarct: No acute infarct is demonstrated. There is stable mild to moderate chronic smal l vessel white matter ischemic change. Evidence of cranial hemorrhage: None. Evidence of midline shift: Third ventricle and septum pellucidum are midline. Ventricles: Normal. No hydrocephalus. SKULL: Intact. VISUALIZED PARANASAL SINUSES: Clear. MASTOID AIR CELLS: Clear. EXTRACRANIAL SOFT TISSUES: Normal. IMPRESSION: No acute intracranial abnormality.
--- NOTE | 2020-01-20 16:07 | RAD ---
EXAM: Single view of the chest HISTORY: Fall. Patient found down on floor. COMPARISON: 12/31/2014 FINDINGS: Single view of the chest shows a normal sized cardiomediastinal silhouette. There is no michelle dence of consolidation, mass, or pleural effusion. Degenerative and postsurgical changes are seen in the spine. IMPRESSION: No evidence of acute cardiopulmonary disease
--- NOTE | 2020-01-20 16:08 | RAD ---
EXAM: 3 views of the right foot HISTORY: Foot pain after being found down on the floor. COMPARISON: None FINDINGS: 3 views of the right foot shows no evidence of acute fracture or dislocation. No soft tissu e swelling is seen. Mild degenerative changes are seen in the midfoot. IMPRESSION: No evidence of acute osseous abnormality.
--- NOTE | 2020-01-20 16:09 | RAD ---
EXAM: 3 views of the left foot HISTORY: Foot pain after being found down on the floor COMPARISON: None FINDINGS: 3 views of the left foot shows a questionable nondisplaced fracture of the proximal phalanx of the small toe. No other fractures or dislocations are seen. Mild lateral soft tissue swelling is seen. Degenerative changes are seen in the midfoot. IMPRESSION: Possible proximal phalanx fracture of the small toe
[2020-01-20 16:48] LABS: #Basophils 0.1 thou/uL (0.0-0.2); #Eosinphils 0.1 thou/uL (0.0-0.7); #Lymphocytes 1.8 thou/uL (1.20-3.40); #Monocytes 0.7 thou/uL (0.11-0.59); #Neutrophils 10.1 thou/uL (1.40-6.50); %Basophils 0.7 % (0.0-1.0); %Eosinophils 0.5 % (0.0-10.0); %Lymphocytes 14.3 % (21.0-51.0); %Monocytes 5.6 % (0.0-10.0); %Neutrophils 78.9 % (42.0-75.0); Mean Corpuscular HGB CONC 30.6 g/dL (32.0-36.0); Mean Corpuscular Hemoglobin 27.7 pg (27.0-31.0); Mean Corpuscular Volume 90.3 fL (78.0-98.0); Mean Platelet Volume 8.3 fL (7.4-10.4); Platelet Count 258 thou/uL (130-400); RBC Distribution Width 12.9 % (11.5-14.5); Red Blood Cell (RBC) Count 4.69 mill/uL (4.20-5.40); White Blood Cell (WBC) Count 12.8 thou/uL (4.8-10.8)
[2020-01-20 17:14] LABS: ALT (SGPT) 12 U/L (8-55); AST (SGOT) 16 U/L (5-34); Albumin 3.9 g/dL (3.4-4.8); Alkaline Phosphatase 83 U/L (40-110); Anion Gap 11 mmol/L (10-20); BUN (Urea Nitrogen) 21 mg/dL (9.8-20.1); Bilirubin, Total 0.4 mg/dL (0.2-1.2); CK (CPK) 388 U/L (29-168); Calc. Creatinine Clearance 0 mL/min (70-130); Calcium 9.8 mg/dL (7.8-10.44); Carbon Dioxide 27 mmol/L (23-31); Chloride 108 mmol/L (98-107); Estimated GFR-MDRD 82; Globulin 3.5 g/dL (2.4-3.5); Glucose 109 mg/dL (83-110); Lipase 7 U/L (8-78); Potassium 4.1 mmol/L (3.5-5.1); Protein, Total 7.4 g/dL (6.0-8.3); Sodium 142 mmol/L (136-145)
[2020-01-20] MEDS ORDERED: Carvedilol 6.25 MG TAB PO SCH (18:45)
[2020-01-20] MEDS ORDERED: hydrALAZINE 20 MG/ML VIAL ONE (19:30)
[2020-01-20 19:41] LABS: Bacteria/HPF None Seen HPF (None Seen); Bilirubin Negative (Negative); Blood, Urine Negative (Negative); Clarity Clear (Clear); Glucose, Urine (Dipstick) Normal (Negative); Leukocyte 75 Leu/uL (Negative); Nitrite Negative (Negative); Protein, Urine (Dipstick) Negative (Neg-Trace); RBC/HPF 0-3 HPF (0-3); Squamous Epithelial 0-3 HPF (0-3); Urobilinogen Normal mg/dL (Less than 2); WBC/HPF 0-3 HPF (0-3)
--- NOTE | 2020-01-20 20:06 | PDOC.HHP ---
Hospitalist HPI - History of Present Illness Fall/generalized weakness History of Present Illness: Patient with PMH of HTN, DM, DLD, TIA/CVA and ambulatory dysfunction who uses walker at baseline presents to ED for evaluation of fall. Per patient fall occurred while trying to get up from the commode/toilet. She is rather vague about details but tells me she was not using her walker and fell forward while trying to stand. Denies any preceding symptoms such as lightheadedness/ dizziness, palpitations, shortness of breath, chest discomfort, focal deficits. Tells me she tried standing but was unable to do so and remained on the floor. She reports generalized weakness at baseline which does appear somewhat worse over weeks but she denies other symptoms such as urinary symptoms, respiratory symptoms, does report some nausea but no vomiting or diarrhea. Reports chills but tells me this is nothing new. She was noted to have elevated BP in the ED but she tells me she had not taken her BP medications. She is at baseline rather poor historian and is unsure as to what medications she takes or if she measures her blood pressure at home. Patient lives at home alone but reports brother in the area who checks on her from time to time. Initial ED evaluation reveals leukocytosis of 12.8 and urinalysis with +'ve leukocytes. X-ray of lower extremity shows possible proximal phalanx fracture of the left small toe. Vital signs show elevated blood pressure in the 200s systolic. Hospitalist ROS - Review of Systems Constitutional: reports: chills, weakness, malaise. denies: fever, sweats Eyes: reports: vision change Respiratory: denies: cough, shortness of breath, SOB with excertion Cardiovascular: denies: chest pain, palpitations, orthopnea, light headedness Gastrointestinal: reports: nausea. denies: vomiting, abdominal pain, diarrhea Genitourinary: denies: dysuria, frequency, incontinence, hematuria Musculoskeletal: reports: leg pain, foot pain - Exam General Appearance: NAD, awake alert Eye: PERRL ENT: normocephalic atraumatic, no oropharyngeal lesions, moist mucosa Neck: supple, no JVD Heart: RRR, no murmur, no gallops Respiratory: CTAB, no wheezes, no rales Gastrointestinal: soft, non-tender Skin: normal turgor Neurological: cranial nerve grossly intact Musculoskeletal: normal tone, generalized weakness Musculoskeletal - other findings: bilateral lower extremity pain Psychiatric: oriented to place, oriented to time Psychiatric - other findings: Very poor historian Hospitalist Results - Labs Result Diagrams: 01/21/20 04:00 01/21/20 04:00 Lab results: WBC 12.8 thou/uL (4.8-10.8) H 01/20/20 16:33 Hgb 13.0 g/dL (12.0-16.0) 01/20/20 16:33 Hct 42.4 % (36.0-47.0) 01/20/20 16:33 MCV 90.3 fL (78.0-98.0) 01/20/20 16:33 Plt Count 258 thou/uL (130-400) 01/20/20 16:33 Neutrophils % 78.9 % (42.0-75.0) H 01/20/20 16:33 Sodium 142 mmol/L (136-145) 01/20/20 16:33 Potassium 4.1 mmol/L (3.5-5.1) 01/20/20 16:33 Chloride 108 mmol/L (98-107) H 01/20/20 16:33 Carbon Dioxide 27 mmol/L (23-31) 01/20/20 16:33 BUN 21 mg/dL (9.8-20.1) H 01/20/20 16:33 Creatinine 0.82 mg/dL (0.6-1.1) 01/20/20 16:33 Glucose 109 mg/dL (83-110) 01/20/20 16:33 Calcium 9.8 mg/dL (7.8-10.44) 01/20/20 16:33 Total Bilirubin 0.4 mg/dL (0.2-1.2) 01/20/20 16:33 AST 16 U/L (5-34) 01/20/20 16:33 ALT 12 U/L (8-55) 01/20/20 16:33 Alkaline Phosphatase 83 U/L (40-110) 01/20/20 16:33 Creatine Kinase 388 U/L (29-168) H 01/20/20 16:33 Troponin I Less than 0.010 ng/mL (< 0.028) 01/20/20 16:33 B-Natriuretic Peptide Less than 10.0 pg/mL (0-100) 01/20/20 16:33 Serum Total Protein 7.4 g/dL (6.0-8.3) 01/20/20 16:33 Albumin 3.9 g/dL (3.4-4.8) 01/20/20 16:33 Lipase 7 U/L (8-78) L 01/20/20 16:33 Urine Ketones Negative mg/dL (Negative) 01/20/20 18:55 Urine Blood Negative (Negative) 01/20/20 18:55 Urine Nitrite Negative (Negative) 01/20/20 18:55 Ur Leukocyte Esterase 75 Jose Francisco/uL (Negative) A 01/20/20 18:55 Urine RBC 0-3 HPF (0-3) 01/20/20 18:55 Urine WBC 0-3 HPF (0-3) 01/20/20 18:55 Ur Squamous Epith Cells 0-3 HPF (0-3) 01/20/20 18:55 Urine Bacteria None Seen HPF (None Seen) 01/20/20 18:55 - Radiology Interpretation Other Status: image reviewed by me (Per HPI) Hospitalist H&P A/P - Plan Plan: Problem List 1. Generalized weakness with ambulatory dysfunction 2. Possible UTI 3. Possible left proximal phalanx fracture of small toe 4. Uncontrolled hypertension 5. History of diabetes 6. Rhabdomyolysis Assessment and Plan 1. Generalized weakness with ambulatory dysfunction - likely multifactorial in setting of chronic deconditioning, possible toe fracture and possible UTI - admit for observation - start fall precautions - PT/OT/CM evaluation for discharge disposition - may benefit from rehab at time of discharge 2. Possible UTI - start patient on Ceftriaxone while in the hospital - await urine culture 3. Possible left proximal phalanx fracture of small toe - tylenol PRN for pain - PT/OT/CM evaluation for discharge disposition 4. Uncontrolled hypertension - likely in setting of poor medical compliance and acute pain - restart home antihypertensives - add IV hydralazine PRN - tylenol PRN for pain 5. History of diabetes - resume home medications 6. Rhabdomyolysis - mild elevation of CPK with preserved renal function - recheck CPK in AM - monitor for need to start IVF DVT PPX: Lovenox FULL CODE
[2020-01-20] MEDS ORDERED: hydrALAZINE 20 MG/ML VIAL SLOW IVP PRN (20:25)
[2020-01-20] MEDS ORDERED: Senokot S 8.6-50 MG TAB PO PRN (20:25)
[2020-01-20] MEDS ORDERED: Ondansetron PF 4 MG/2 ML Vial IVP PRN (20:25)
[2020-01-20] MEDS ORDERED: Acetaminophen 325 MG TAB PO PRN (20:25)
[2020-01-20] MEDS ORDERED: Acetaminophen 325 MG TAB ONE (21:30)
[2020-01-20 22:17] LABS: Troponin I 0.021 ng/mL (< 0.028)
[2020-01-20] MEDS ORDERED: cefTRIAXone\\ROCEPHIN 1 GM in Sodium Chloride 0.9% 100 ML IVPB SCH (23:00)
[2020-01-20 23:02] VITALS: BMI 45.7
[2020-01-20] MEDS: Rosuvastatin 5 MG TAB PO SCH (23:45)
[2020-01-20] MEDS: hydrALAZINE 25 MG TAB PO SCH (23:45)
[2020-01-21 00:16] LABS: Troponin I Less than 0.010 ng/mL (< 0.028)
[2020-01-21 04:30] LABS: Band 2 % (5-11); Hemoglobin 13.1 g/dL (12.0-16.0); Lymphocytes 15 % (21-51); MDiff Complete? YES; Mean Corpuscular HGB CONC 31.2 g/dL (32.0-36.0); Mean Corpuscular Hemoglobin 28.2 pg (27.0-31.0); Mean Corpuscular Volume 90.4 fL (78.0-98.0); Mean Platelet Volume 9.1 fL (7.4-10.4); Monocytes 2 % (0-10); Neutrophil 81 % (42-75); Platelet Count 232 thou/uL (130-400); Platelet Morphology Comment Appears Adequate; RBC Distribution Width 13.1 % (11.5-14.5); RBC Morphology Normal; Red Blood Cell (RBC) Count 4.64 mill/uL (4.20-5.40); White Blood Cell (WBC) Count 10.5 thou/uL (4.8-10.8)
[2020-01-21 04:42] LABS: Anion Gap 13 mmol/L (10-20); BUN (Urea Nitrogen) 18 mg/dL (9.8-20.1); CK (CPK) 492 U/L (29-168); Calc. Creatinine Clearance 144 mL/min (70-130); Calcium 9.8 mg/dL (7.8-10.44); Carbon Dioxide 23 mmol/L (23-31); Chloride 111 mmol/L (98-107); Estimated GFR-MDRD 86; Glucose 124 mg/dL (83-110); Potassium 3.9 mmol/L (3.5-5.1); Sodium 143 mmol/L (136-145)
[2020-01-21] MEDS: Allopurinol 100 MG TAB PO SCH (08:41)
[2020-01-21] MEDS: NIFEdipine XL 60 MG TAB PO SCH (08:41)
[2020-01-21] MEDS: Losartan 25 MG TAB PO SCH (08:41)
[2020-01-21] MEDS: Furosemide 40 MG TAB PO SCH (08:41)
[2020-01-21] MEDS: Carvedilol 6.25 MG TAB PO SCH (08:42)
[2020-01-21] MEDS: hydrALAZINE 25 MG TAB PO SCH ×2 (08:42→21:18)
[2020-01-21] MEDS: Aspirin 81 mg Enteric Coated Tablet PO SCH (08:42)
[2020-01-21] MEDS: Glimepiride 4 MG TAB PO SCH (08:43)
[2020-01-21] MEDS: traMADol HCl 50 MG TAB PO SCH (08:43)
[2020-01-21] MEDS: Enoxaparin Sodium 40 MG/0.4 ML SYRINGE SC SCH (08:44)
--- NOTE | 2020-01-21 09:00 | PDOC.HOSPP ---
- Subjective Encounter Date: 01/21/20 Encounter Time: 14:00 Subjective: Patient with pain from her foot with the broken toe. Feels very weak all over. This has been getting progressively worse for months. Barely able to get around with her walker before her fall. Refused to try to get up with PT today due to foot pain. - Objective Vital Signs & Weight: Vital Signs (12 hours) Temp Pulse Resp BP Pulse Ox 01/21/20 04:00 98.8 F 91 18 127/62 93 L 01/20/20 23:45 108 H Weight Admit Weight 330 lb 1.6 oz Weight 327 lb 12.8 oz I&O: 01/20/20 01/21/20 01/22/20 06:59 06:59 06:59 Intake Total 1000 Output Total 300 Balance 700 Result Diagrams: 01/21/20 04:00 01/21/20 04:00 Additional Labs: Accuchecks 01/21/20 06:17 POC Glucose 117 H Hospitalist ROS - Review of Systems Constitutional: denies: fever, chills Respiratory: denies: cough, shortness of breath Cardiovascular: denies: chest pain, palpitations Gastrointestinal: denies: nausea, vomiting, abdominal pain Neurological: reports: weakness - Medication Medications: Active Medications Generic Name Dose Route Start Last Admin Trade Name Freq PRN Reason Stop Dose Admin Allopurinol 100 mg 01/21/20 09:00 01/21/20 08:41 Zyloprim PO 100 mg DAILY ELLEN Administration Aspirin 81 mg 01/21/20 09:00 01/21/20 08:42 Ecotrin PO 81 mg DAILY ELLEN Administration Carvedilol 12.5 mg 01/21/20 09:00 01/21/20 08:42 Coreg PO 12.5 mg DAILY ELLEN Administration Enoxaparin Sodium 40 mg 01/21/20 09:00 01/21/20 08:44 Lovenox SC 40 mg 0900 ELLEN Administration Furosemide 40 mg 01/21/20 09:00 01/21/20 08:41 Lasix PO 40 mg DAILY ELLEN Administration Glimepiride 2 mg 01/21/20 09:00 01/21/20 08:43 Amaryl PO 2 mg DAILY ELLEN Administration Hydralazine HCl 25 mg 01/20/20 21:00 01/21/20 08:42 Apresoline PO 25 mg BID ELLEN Administration Losartan Potassium 100 mg 01/21/20 09:00 01/21/20 08:41 Cozaar PO 100 mg DAILY ELLEN Administration Nifedipine 60 mg 01/21/20 09:00 01/21/20 08:41 Procardia Xl PO 60 mg DAILY ELLEN Administration Rosuvastatin Calcium 5 mg 01/20/20 21:00 01/20/20 23:45 Crestor PO Not Given HS ELLEN Tramadol HCl 50 mg 01/21/20 09:00 01/21/20 08:43 Ultram PO 50 mg DAILY ELLEN Administration - Exam General Appearance: NAD, awake alert ENT: moist mucosa Heart: RRR, no murmur, no gallops, no rubs Respiratory: CTAB, no wheezes, no rales, no ronchi Gastrointestinal: soft, non-tender, non-distended, normal bowel sounds Psychiatric: normal affect, normal behavior Hosp A/P - Plan Problem List 1. Generalized weakness with ambulatory dysfunction 2. Possible UTI- doubt significant infection 3. Possible left proximal phalanx fracture of small toe- non-displaced 4. Uncontrolled hypertension 5. History of diabetes 6. Rhabdomyolysis Assessment and Plan 1. Generalized weakness with ambulatory dysfunction - likely multifactorial in setting of chronic deconditioning, possible toe fracture - admit for observation - start fall precautions - PT/OT/CM evaluation for discharge disposition - may benefit from rehab at time of discharge 2. Possible UTI - No bacteria or WBC on UA, doubt significant infection, will d/c antibiotics. - Urine culture mentioned on H&P but don't see that the ER ever sent one, no need at this point 3. Possible left proximal phalanx fracture of small toe Non-displaced - tylenol PRN for pain - PT/OT/CM evaluation for discharge disposition - nondisplaced, no intervention necessary - will get surgical shoe for support when needs to ambulate. 4. Uncontrolled hypertension - likely in setting of poor medical compliance and acute pain - restarted home antihypertensives and controlled this morning - add IV hydralazine PRN - tylenol PRN for pain 5. History of diabetes - resume home medications 6. Rhabdomyolysis - mild elevation of CPK with preserved renal function - rechecked CPK in AM, still only moderately elevated, will give some IV fluids DVT PPX: Lovenox FULL CODE Patient will need SNF placement. No inpatient criteria at this time.
[2020-01-21] MEDS: Sodium Chloride 0.45% 1,000 ML IV SCH ×2 (10:48→23:00)
[2020-01-21] MEDS: Rosuvastatin 5 MG TAB PO SCH (21:19)
[2020-01-22] MEDS: Allopurinol 100 MG TAB PO SCH (09:29)
[2020-01-22] MEDS: Aspirin 81 mg Enteric Coated Tablet PO SCH (09:29)
[2020-01-22] MEDS: Carvedilol 6.25 MG TAB PO SCH (09:30)
[2020-01-22] MEDS: Enoxaparin Sodium 40 MG/0.4 ML SYRINGE SC SCH (09:30)
[2020-01-22] MEDS: Furosemide 40 MG TAB PO SCH (09:30)
[2020-01-22] MEDS: Glimepiride 4 MG TAB PO SCH (09:31)
[2020-01-22] MEDS: Losartan 25 MG TAB PO SCH (09:31)
[2020-01-22] MEDS: hydrALAZINE 25 MG TAB PO SCH ×2 (09:31→22:03)
[2020-01-22] MEDS: NIFEdipine XL 60 MG TAB PO SCH (09:32)
[2020-01-22] MEDS: traMADol HCl 50 MG TAB PO SCH (09:32)
[2020-01-22] MEDS: Sodium Chloride 0.45% 1,000 ML IV SCH (11:56)
--- NOTE | 2020-01-22 12:30 | PDOC.HOSPP ---
- Subjective Encounter Date: 01/22/20 Encounter Time: 09:45 Subjective: Patient seen and examined. No new complaints. No overnight events - Objective Vital Signs & Weight: Vital Signs (12 hours) Temp Pulse Resp BP Pulse Ox 01/22/20 11:51 97.6 F 70 14 159/74 H 97 01/22/20 07:46 97.6 F 77 16 142/77 H 99 01/22/20 03:32 98.2 F 68 20 133/96 H 100 Weight Admit Weight 330 lb 1.6 oz Weight 329 lb 3.2 oz I&O: 01/21/20 01/22/20 01/23/20 06:59 06:59 06:59 Intake Total 1000 1400 Output Total 300 1175 Balance 700 225 Result Diagrams: 01/21/20 04:00 01/21/20 04:00 Additional Labs: Accuchecks 01/22/20 01/22/20 01/21/20 11:05 05:55 20:43 POC Glucose 163 H 132 H 140 H 01/21/20 01/21/20 17:02 11:45 POC Glucose 113 H 169 H Hospitalist ROS - Review of Systems ENT: denies: ear pain, ear discharge, nose pain, nose discharge, nose congestion , mouth pain, mouth swelling, throat pain, throat swelling, other Respiratory: denies: cough, dry, shortness of breath, hemoptysis, SOB with excertion, pleuritic pain, sputum, wheezing, other Gastrointestinal: denies: nausea, vomiting, abdominal pain, diarrhea, constipation, melena, hematochezia, other Genitourinary: denies: dysuria, frequency, incontinence, hematuria, retention, other Musculoskeletal: reports: foot pain. denies: neck pain, shoulder pain, arm pain , back pain, hand pain, leg pain, other Skin: denies: rash, lesions, mikala, bruising, other - Medication Medications: Active Medications Generic Name Dose Route Start Last Admin Trade Name Freq PRN Reason Stop Dose Admin Acetaminophen 650 mg 01/20/20 20:25 01/21/20 21:18 Tylenol PO 650 mg Q4H PRN Administration Headache/Fever/Mild Pain (1-3) Allopurinol 100 mg 01/21/20 09:00 01/22/20 09:29 Zyloprim PO 100 mg DAILY ELLEN Administration Aspirin 81 mg 01/21/20 09:00 01/22/20 09:29 Ecotrin PO 81 mg DAILY ELLEN Administration Carvedilol 12.5 mg 01/21/20 09:00 01/22/20 09:30 Coreg PO 12.5 mg DAILY ELLEN Administration Enoxaparin Sodium 40 mg 01/21/20 09:00 01/22/20 09:30 Lovenox SC 40 mg 0900 ELLEN Administration Furosemide 40 mg 01/21/20 09:00 01/22/20 09:30 Lasix PO 40 mg DAILY ELLEN Administration Glimepiride 2 mg 01/21/20 09:00 01/22/20 09:31 Amaryl PO 2 mg DAILY ELLEN Administration Hydralazine HCl 25 mg 01/20/20 21:00 01/22/20 09:31 Apresoline PO 25 mg BID ELLEN Administration Sodium Chloride 1,000 mls @ 75 mls/hr 01/21/20 09:15 01/22/20 11:56 1/2 Normal Saline IV 1,000 mls .[id number] ELLEN Administration Losartan Potassium 100 mg 01/21/20 09:00 01/22/20 09:31 Cozaar PO 100 mg DAILY ELLEN Administration Nifedipine 60 mg 01/21/20 09:00 01/22/20 09:32 Procardia Xl PO 60 mg DAILY ELLEN Administration Rosuvastatin Calcium 5 mg 01/20/20 21:00 01/21/20 21:19 Crestor PO 5 mg HS ELLEN Administration Sodium Chloride 10 ml 01/21/20 21:00 01/22/20 09:33 Flush - Normal Saline IVF Not Given Q12HR ELLEN Sodium Chloride 10 ml 01/21/20 09:15 01/21/20 10:49 Flush - Normal Saline IVF 10 ml PRN PRN Administration Saline Flush Tramadol HCl 50 mg 01/21/20 09:00 01/22/20 09:32 Ultram PO 50 mg DAILY ELLEN Administration - Exam General Appearance: NAD, awake alert Eye: PERRL, anicteric sclera ENT: normocephalic atraumatic, no oropharyngeal lesions Neck: supple, symmetric, no JVD, no thyromegaly Heart: RRR, no murmur, no gallops, no rubs Respiratory: CTAB, no wheezes, no rales, no ronchi Gastrointestinal: soft, non-tender, non-distended, normal bowel sounds Extremities: no cyanosis, no clubbing, no edema Skin: normal turgor, no lesions Neurological: no focal deficits Musculoskeletal: normal tone, normal strength Psychiatric: normal affect, normal behavior Hosp A/P (1) Weakness generalized Code(s): R53.1 - WEAKNESS Status: Acute (2) Fall Code(s): W19.XXXA - UNSPECIFIED FALL, INITIAL ENCOUNTER Status: Acute (3) Rhabdomyolysis Code(s): M62.82 - RHABDOMYOLYSIS Status: Acute (4) DM type 2 (diabetes mellitus, type 2) Status: Chronic Qualifiers: Diabetes mellitus mcc insulin use: without terminal block assembler use (5) Dyslipidemia Code(s): E78.5 - HYPERLIPIDEMIA, UNSPECIFIED Status: Chronic (6) HTN (hypertension) Code(s): I10 - ESSENTIAL (PRIMARY) HYPERTENSION Status: Chronic Qualifiers: Hypertension type: essential hypertension Qualified Code(s): I10 - Essential (primary) hypertension (7) Obesity Code(s): E66.9 - OBESITY, UNSPECIFIED Status: Chronic Qualifiers: Obesity classification: adult class 3 (BMI >= 40) Body mass index: BMI 45.0 -49.9 - Plan old records reviewed/req, plan discussed w/ family, PT/OT, 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 pt c/o right great toe pain and right foot pain ? gout will check CRP, uric acid and give trial of solumedrol dc ivf medication reviewed symptomatic treatment
[2020-01-22] MEDS: Insulin Regular 300 UNITS/3 ML VIAL SC PRN ×2 (12:32→17:26)
[2020-01-22] MEDS: methylPREDNISolone Sod Succ 40 MG VIAL IVP SCH ×2 (13:13→22:05)
[2020-01-22 13:19] LABS: CRP (Inflammatory) 7.75 mg/dL (= or < 0.5)
[2020-01-22] MEDS ORDERED: Cepastat Lozenges 1 LOZ PO PRN (14:03)
[2020-01-22] MEDS ORDERED: Bisacodyl 10 MG SUPP PR PRN (14:03)
[2020-01-22] MEDS ORDERED: Artificial Tears 18 DROP/0.9 ML EA EYE PRN (14:03)
[2020-01-22] MEDS ORDERED: Diabetic Tussin 200 MG/10 ML UDCUP PO PRN (14:03)
[2020-01-22] MEDS ORDERED: Loratadine 10 MG TAB PO PRN (14:03)
[2020-01-22] MEDS ORDERED: Loperamide HCl 2 MG CAP PO PRN (14:03)
[2020-01-22] MEDS ORDERED: HYDROcodone/Acetaminophen 5/325 mg Tablet PO PRN (14:03)
[2020-01-22] MEDS ORDERED: Ondansetron ODT 4 MG TAB PO PRN (14:03)
[2020-01-22] MEDS ORDERED: Calcium Carbonate 500 MG ChewTAB PO PRN (14:03)
[2020-01-22] MEDS ORDERED: diphenhydrAMINE 25 MG CAP PO PRN (14:03)
[2020-01-22] MEDS ORDERED: Dextrose 50% Abboject 50 ML SYRINGE SLOW IVP PRN (21:05)
[2020-01-22] MEDS ORDERED: HumaLOG 300 UNITS/3 ML VIAL SC PRN (21:05)
[2020-01-22] MEDS ORDERED: Dextrose 5% in Water 1,000 ML IV PRN (21:05)
[2020-01-22] MEDS: Rosuvastatin 5 MG TAB PO SCH (22:04)
[2020-01-23] MEDS: methylPREDNISolone Sod Succ 40 MG VIAL IVP SCH (05:12)
[2020-01-23] MEDS: Insulin Regular 300 UNITS/3 ML VIAL SC PRN ×2 (06:13→12:15)
[2020-01-23] MEDS: Allopurinol 100 MG TAB PO SCH (08:55)
[2020-01-23] MEDS: Aspirin 81 mg Enteric Coated Tablet PO SCH (08:55)
[2020-01-23] MEDS: Enoxaparin Sodium 40 MG/0.4 ML SYRINGE SC SCH (08:55)
[2020-01-23] MEDS: Carvedilol 6.25 MG TAB PO SCH (08:55)
[2020-01-23] MEDS: Glimepiride 4 MG TAB PO SCH (08:56)
[2020-01-23] MEDS: Furosemide 40 MG TAB PO SCH (08:56)
[2020-01-23] MEDS: Losartan 25 MG TAB PO SCH (08:57)
[2020-01-23] MEDS: hydrALAZINE 25 MG TAB PO SCH (08:57)
[2020-01-23] MEDS: traMADol HCl 50 MG TAB PO SCH (08:58)
[2020-01-23] MEDS: NIFEdipine XL 60 MG TAB PO SCH (08:58)
--- NOTE | 2020-01-23 10:21 | PDOC.HOSPP ---
- Subjective Encounter Date: 01/23/20 Encounter Time: 08:40 Subjective: Patient seen and examined. No new complaints. No overnight events - Objective Vital Signs & Weight: Vital Signs (12 hours) Temp Pulse Resp BP Pulse Ox 01/23/20 07:21 97.2 F L 74 21 H 174/80 H 97 01/23/20 04:30 97.8 F 79 12 130/60 96 01/23/20 00:15 97.8 F 70 14 137/63 99 Weight Admit Weight 330 lb 1.6 oz Weight 334 lb 1.6 oz I&O: 01/22/20 01/23/20 01/24/20 06:59 06:59 06:59 Intake Total 1400 1322 Output Total 1175 1100 Balance 225 222 Result Diagrams: 01/21/20 04:00 01/21/20 04:00 Additional Labs: Accuchecks 01/23/20 01/22/20 01/22/20 06:00 20:36 17:29 POC Glucose 269 H 330 H 173 H 01/22/20 11:05 POC Glucose 163 H EKG Reviewed by me: Yes Hospitalist ROS - Review of Systems ENT: denies: ear pain, ear discharge, nose pain, nose discharge, nose congestion , mouth pain, mouth swelling, throat pain, throat swelling, other Respiratory: denies: cough, dry, shortness of breath, hemoptysis, SOB with excertion, pleuritic pain, sputum, wheezing, other Cardiovascular: denies: chest pain, palpitations, orthopnea, paroxysmal noc. dyspnea, edema, light headedness, other Gastrointestinal: denies: nausea, vomiting, abdominal pain, diarrhea, constipation, melena, hematochezia, other Genitourinary: denies: dysuria, frequency, incontinence, hematuria, retention, other Musculoskeletal: denies: neck pain, shoulder pain, arm pain, back pain, hand pain, leg pain, foot pain, other - Medication Medications: Active Medications Generic Name Dose Route Start Last Admin Trade Name Freq PRN Reason Stop Dose Admin Acetaminophen 650 mg 01/20/20 20:25 01/21/20 21:18 Tylenol PO 650 mg Q4H PRN Administration Headache/Fever/Mild Pain (1-3) Hydrocodone Bitart/Acetaminophen 1 tab 01/22/20 14:03 01/22/20 22:04 [place] 5/325 PO 1 tab Q4H PRN Administration Moderate Pain (4-6) Allopurinol 100 mg 01/21/20 09:00 01/23/20 08:55 Zyloprim PO 100 mg DAILY ELLEN Administration Aspirin 81 mg 01/21/20 09:00 01/23/20 08:55 Ecotrin PO 81 mg DAILY ELLEN Administration Carvedilol 12.5 mg 01/21/20 09:00 01/23/20 08:55 Coreg PO 12.5 mg DAILY ELLEN Administration Enoxaparin Sodium 40 mg 01/21/20 09:00 01/23/20 08:55 Lovenox SC 40 mg 0900 ELLEN Administration Furosemide 40 mg 01/21/20 09:00 01/23/20 08:56 Lasix PO 40 mg DAILY ELLEN Administration Glimepiride 2 mg 01/21/20 09:00 01/23/20 08:56 Amaryl PO 2 mg DAILY ELLEN Administration Hydralazine HCl 25 mg 01/20/20 21:00 01/23/20 08:57 Apresoline PO 25 mg BID ELLEN Administration Insulin Human Lispro 0 units 01/22/20 21:05 01/22/20 22:04 Humalog SC 4 unit .BEDTIME SLIDING SC PRN Administration Bedtime Correctional Scale Insulin Human Regular 0 units 01/22/20 12:07 01/23/20 06:13 Humulin R SC 4 unit .MILD SLIDING PRN Administration MILD SLIDING SCALE Protocol Losartan Potassium 100 mg 01/21/20 09:00 01/23/20 08:57 Cozaar PO 100 mg DAILY ELLEN Administration Nifedipine 60 mg 01/21/20 09:00 01/23/20 08:58 Procardia Xl PO 60 mg DAILY ELLEN Administration Rosuvastatin Calcium 5 mg 01/20/20 21:00 01/22/20 22:04 Crestor PO 5 mg HS ELLEN Administration Sodium Chloride 10 ml 01/21/20 21:00 01/23/20 08:59 Flush - Normal Saline IVF 10 ml Q12HR ELLEN Administration Sodium Chloride 10 ml 01/21/20 09:15 01/21/20 10:49 Flush - Normal Saline IVF 10 ml PRN PRN Administration Saline Flush Tramadol HCl 50 mg 01/21/20 09:00 01/23/20 08:58 Ultram PO 50 mg DAILY ELLEN Administration - Exam General Appearance: NAD, awake alert Eye: PERRL, anicteric sclera ENT: normocephalic atraumatic, no oropharyngeal lesions Neck: supple, symmetric, no JVD Heart: RRR, no murmur, no gallops Respiratory: CTAB, no wheezes, no rales, no ronchi Gastrointestinal: soft, non-tender, non-distended, normal bowel sounds Extremities: no cyanosis, no clubbing Skin: normal turgor, no lesions Neurological: cranial nerve grossly intact, no focal deficits Musculoskeletal: normal tone, normal strength Psychiatric: normal affect, normal behavior Hosp A/P (1) Weakness generalized Code(s): R53.1 - WEAKNESS Status: Acute (2) Fall Code(s): W19.XXXA - UNSPECIFIED FALL, INITIAL ENCOUNTER Status: Acute (3) Rhabdomyolysis Code(s): M62.82 - RHABDOMYOLYSIS Status: Acute (4) DM type 2 (diabetes mellitus, type 2) Status: Chronic Qualifiers: Diabetes mellitus terminal gauger insulin use: without terminal gauger use (5) Dyslipidemia Code(s): E78.5 - HYPERLIPIDEMIA, UNSPECIFIED Status: Chronic (6) HTN (hypertension) Code(s): I10 - ESSENTIAL (PRIMARY) HYPERTENSION Status: Chronic Qualifiers: Hypertension type: essential hypertension Qualified Code(s): I10 - Essential (primary) hypertension (7) Obesity Code(s): E66.9 - OBESITY, UNSPECIFIED Status: Chronic Qualifiers: Obesity classification: adult class 3 (BMI >= 40) Body mass index: BMI 45.0 -49.9 - Plan old records reviewed/req, PT/OT, social director as she has not done well with PT yet, will see how she does today with PT discharge pending PT recommendation. pt c/o right great toe pain and right foot pain ? gout will check CRP, uric acid and give trial of solumedrol dc ivf medication reviewed symptomatic treatment 01/23/20 await SNU decision if denied, then home health change solumderol to prednisone bid discussed with family
--- NOTE | 2020-01-23 15:08 | DIS ---
DATE OF ADMISSION: 01/20/2020 DATE OF DISCHARGE: 01/23/2020 PRIMARY CARE PHYSICIAN: Dr. Nannette Lincoln MD. DISCHARGE DISPOSITION: Home with home health. PRIMARY DISCHARGE DIAGNOSES: 1. Right great toe pain, likely due to acute gout. 2. Rhabdomyolysis after mechanical fall. 3. Generalized weakness. SECONDARY DISCHARGE DIAGNOSES: Hypertension, obesity with BMI of 46, dyslipidemia, diabetes type 2. PRIMARY PROCEDURE/OPERATION: None. RADIOLOGICAL INVESTIGATION: Chest x-ray showed no acute cardiopulmonary process. CT brain showed no acute intracranial process. Foot x-ray on the left side showed possible proximal phalanx fracture of the small toe. Right foot x-ray was normal. SIGNIFICANT LABORATORY DATA: Hemoglobin 13.1, WBC 10.5, platelet 232. CRP 7.75. Uric acid 6.0. Creatinine 0.79. CK of 492. Troponin negative. Urinalysis normal. DISCHARGE MEDICATIONS: 1. Doxycycline 100 mg p.o. b.i.d. for 7 days. 2. Prednisone 20 mg p.o. b.i.d. for 5 days. 3. Allopurinol 100 mg daily. 4. Coreg 12.5 mg daily. 5. Vitamin D3 of 5000 units p.o. daily. 6. Colestipol 2 g p.o. b.i.d. 7. Lasix 40 mg daily. 8. Benicar 40 mg daily. 9. Potassium chloride 20 mEq p.o. daily. 10. Crestor 5 mg p.o. at bedtime. 11. Tramadol 50 mg daily. 12. Aspirin 81 mg daily. 13. Amaryl 2 mg daily. 14. Hydralazine 25 mg b.i.d. 15. Procardia XL 60 mg daily. CONTRAINDICATION: None. CODE STATUS: Full code. INPATIENT PRODUCTION CONTROL PEGBOARD CLERK: None. ALLERGIES: NO KNOWN DRUG ALLERGY. DISCHARGE PLAN: Post hospital, the patient will follow up with primary care physician in one week. HOSPITAL COURSE: A 74-year-old female, who was admitted by Dr. Colin Gaitan. Please see his H and P for further details. The patient was having generalized weakness and she was having right great toe pain. In the emergency room, x-ray was unremarkable. Her urinalysis showed leukocyte esterase positive and she had leukocytosis. Left foot x-ray showed proximal phalanx fracture of the left small toe. She was also having elevated uric acid and elevated CRP and that is why we treated with steroid for possible acute gout. The patient also had rhabdomyolysis. The patient was having significant physical deconditioning and that is why we consulted PT, OT, and medical case worker. The patient was stayed in the hospital longer because she was waiting for placement and . Finally, her insurance denied her long-term home placement and that is why with the help of medical case worker, we arranged the home with home health. The patient was having IV site infection and that is why we started on doxycycline, but the patient was not having any cord-like structure. The patient is seen and examined at bedside today. Please see my progress note from today for further details. All new medication prescription sent to her pharmacy. prednisone for 5 days. Overall, the patient is stable for discharge today. Job ID: [id number]
[2020-01-23 15:23] VITALS: BP 147/69; TEMP 98.4
[2020-01-23] MEDS ORDERED: predniSONE 20 MG TAB PO SCH (21:00)
--- NOTE | 2020-01-25 13:03 | EKG ---
Test Reason : Blood Pressure : / mmHG Vent. Rate : 080 BPM Atrial Rate : 080 BPM P-R Int : 198 ms QRS Dur : 066 ms QT Int : 370 ms P-R-T Axes : 061 -30 026 degrees QTc Int : 426 ms Normal sinus rhythm with sinus arrhythmia Left axis deviation Abnormal ECG Confirmed by SEAN LLANES DO ([id number]), film or videotape editor WHITNEY DOOLEY ([id number]) on 01/25/2020 1:03:09 PM Referred By: Confirmed By:SEAN LLANES DO
== END 2020-01-23 17:10 | disposition home health service (06) ==
LOC: ERS 13:47 → 2NO 20:33
PROVIDERS: ADMIT Internal Medicine; ATTEND Internal Medicine
DX: R53.1 Weakness (principal); M79.674 Pain in right toe(s); M62.82 Rhabdomyolysis; I10 Essential (primary) hypertension; E11.9 Type 2 diabetes mellitus without complications; E78.5 Hyperlipidemia, unspecified; M19.90 Unspecified osteoarthritis, unspecified site; E66.9 Obesity, unspecified; Z68.42 Body mass index [BMI] 45.0-49.9, adult; Z86.73 Personal history of transient ischemic attack (TIA), and cerebral infarction without residual deficits; Z79.82 Long term (current) use of aspirin; Z79.84 Long term (current) use of oral hypoglycemic drugs; Z79.899 Other long term (current) drug therapy; W18.11XA Fall from or off toilet without subsequent striking against object, initial encounter
CPT/HCPCS: 36415; 36416; 70450; 71045; 80048; 80053; 81003; 81015; 82550; 83690; 83880; 84484; 84550; 85007; 85025; 85027; 86140; 93005; 96372; 96374; 96375; 96376; G0378; J0360; J0696; J1650; J1815; J2920; J3490

== ENCOUNTER 2020-07-16 02:13 | Observation (INO) | payer MEDICARE ==
[2020-07-16] MEDS ORDERED: Acetaminophen 500 MG TAB ONE (02:49)
[2020-07-16] MEDS ORDERED: Ondansetron PF 4 MG/2 ML Vial ONE (02:49)
[2020-07-16 03:26] LABS: #Basophils 0.1 thou/uL (0.0-0.2); #Eosinphils 0.2 thou/uL (0.0-0.7); #Monocytes 0.7 thou/uL (0.11-0.59); #Neutrophils 4.7 thou/uL (1.40-6.50); %Basophils 0.9 % (0.0-1.0); %Eosinophils 2.4 % (0.0-10.0); %Lymphocytes 25.6 % (21.0-51.0); %Neutrophils 62.1 % (42.0-75.0); Hemoglobin 13.1 g/dL (12.0-16.0); Mean Corpuscular HGB CONC 33.4 g/dL (32.0-36.0); Mean Corpuscular Hemoglobin 30.4 pg (27.0-31.0); Mean Platelet Volume 8.3 fL (7.4-10.4); Platelet Count 182 thou/uL (130-400); RBC Distribution Width 12.7 % (11.5-14.5); Red Blood Cell (RBC) Count 4.29 mill/uL (4.20-5.40); White Blood Cell (WBC) Count 7.6 thou/uL (4.8-10.8)
[2020-07-16 03:48] LABS: ALT (SGPT) 16 U/L (8-55); AST (SGOT) 11 U/L (5-34); Albumin 3.2 g/dL (3.4-4.8); Alkaline Phosphatase 81 U/L (40-110); Anion Gap 11 mmol/L (10-20); BUN (Urea Nitrogen) 11 mg/dL (9.8-20.1); Bilirubin, Total 0.4 mg/dL (0.2-1.2); Calc. Creatinine Clearance 0 mL/min (70-130); Calcium 9.1 mg/dL (7.8-10.44); Carbon Dioxide 29 mmol/L (23-31); Chloride 107 mmol/L (98-107); Glucose 136 mg/dL (83-110); Potassium 3.8 mmol/L (3.5-5.1); Protein, Total 6.2 g/dL (6.0-8.3); Sodium 143 mmol/L (136-145)
[2020-07-16] MEDS ORDERED: Acetaminophen 325 MG TAB PO PRN (04:35)
[2020-07-16] MEDS ORDERED: Ondansetron PF 4 MG/2 ML Vial IVP PRN (04:35)
[2020-07-16] MEDS ORDERED: Nitroglycerin 0.4 MG TAB (25 Tab Bottle) SL PRN (04:35)
[2020-07-16] MEDS ORDERED: HYDROcodone/Acetaminophen 5/325 mg Tablet PO PRN (04:35)
[2020-07-16] MEDS ORDERED: Aspirin 325 MG TAB PO SCH (04:45)
--- NOTE | 2020-07-16 04:53 | PDOC.BPN ---
- Brief Progress Note [id number] HP dictated
[2020-07-16] MEDS ORDERED: Dextrose 50% Abboject 50 ML SYRINGE SLOW IVP PRN (04:56)
[2020-07-16] MEDS ORDERED: HumaLOG 300 UNITS/3 ML VIAL SC PRN (04:56)
[2020-07-16] MEDS ORDERED: Dextrose 5% in Water 1,000 ML IV PRN (04:56)
--- NOTE | 2020-07-16 06:06 | HP ---
CHIEF COMPLAINT: Chest pain, headache and elevated blood pressure. HISTORY OF PRESENT ILLNESS: Ms. Vang is a 74-year-old female with past medical history of hypertension, hyperlipidemia, diabetes mellitus, among others, presents to the emergency room with headache, 3 days of chest pain and dizziness. The symptoms started at 7 a.m. yesterday. Denies difficulty with speech or weakness. Denies shortness of breath or trouble breathing. The patient reports compliance with all her medications. The patient was treated with nitroglycerin en route with improvement in blood pressure to the 170s. It was in the 200s initially. Initial workup in the emergency room including troponin less than 0.01. EKG showed sinus rhythm with nonspecific changes. The patient's symptoms improved. The patient is being admitted to the hospital for further management. PAST MEDICAL HISTORY: As mentioned above in history of present illness. PAST SURGICAL HISTORY: 1. Neck and back surgery. 2. Cholecystectomy. 3. Hysterectomy. 4. Right foot surgery. SOCIAL HISTORY: Denies drug use. Denies alcohol use. She has a history of smoking. FAMILY HISTORY: Reviewed and noncontributory. HOME MEDICATIONS: See home medication reconciliation form for updated medications. ALLERGIES: NO KNOWN ALLERGIES. REVIEW OF SYSTEMS: Review of 14 systems negative except what is mentioned in the history of present illness. PHYSICAL EXAMINATION: GENERAL: The patient is awake, alert, not in acute distress. VITAL SIGNS: Blood pressure 150/74, pulse is 60, respiratory rate is 17, oxygen saturation is 100% on room air, temperature 98.4. HEAD AND NECK: Normocephalic, atraumatic. NECK: Supple. No JVD. CHEST: Fair bilateral air entry. HEART: S1, S2. Regular. ABDOMEN: Soft, nontender. Bowel sounds present. NEUROLOGIC: Awake, alert, oriented. No focal deficits. PSYCHIATRIC: Unable to assess. EXTREMITIES: No clubbing. No cyanosis. GENITOURINARY: No suprapubic tenderness. No flank tenderness. LABORATORY DATA: As mentioned above in history of present illness. ASSESSMENT: 1. Hypertensive urgency. 2. Chest pain. 3. Headache. 4. Hyperlipidemia. 5. Diabetes mellitus. 6. Former smoker. PLAN: 1. Admit. 2. Telemetry monitoring. 3. Aspirin. 4. Serial troponins. 5. Monitor and control blood pressure. 6. Reconcile home medications. 7. DVT prophylaxis as appropriate. 8. Expected length of stay, 1 midnight if the patient is stable and show significant clinical improvement. Job ID: [id number]
[2020-07-16 06:24] LABS: Troponin I 0.016 ng/mL (< 0.028)
[2020-07-16] MEDS ORDERED: Aspirin 325 MG TAB ONE (06:49)
[2020-07-16] MEDS ORDERED: HYDROcodone/Acetaminophen 5/325 mg Tablet ONE (06:49)
[2020-07-16] MEDS ORDERED: hydrALAZINE 25 MG TAB PO SCH (09:00)
[2020-07-16] MEDS ORDERED: Enoxaparin Sodium 40 MG/0.4 ML SYRINGE SC SCH (09:00)
[2020-07-16] MEDS ORDERED: NIFEdipine XL 60 MG TAB PO SCH (09:00)
[2020-07-16] MEDS ORDERED: Metoprolol Tartrate 25 MG TAB PO SCH (09:00)
--- NOTE | 2020-07-16 09:01 | RAD ---
SINGLE VIEW CHEST: Date: 07/16/2020 COMPARISON: 01/20/2020. HISTORY: Dizziness and headache. Chest pain. FINDINGS: Single view of the chest shows normal sized cardiomediastinal silhouette with atherosclerotic calcifi cations in the aorta. There is no evidence of consolidation, mass, or pleural effusion. Degenerative changes and postsurgical changes are seen in the spine. There is air in the left neck, which is in an uncertain location, but appears to be lateral to the trachea. IMPRESSION: 1. No evidence of acute cardiopulmonary disease. 2. Air in the left neck is in an uncertain location. This appears lateral to the trachea. Correlate with physical examination. POS: EAA
[2020-07-16 09:11] LABS: Troponin I Less than 0.010 ng/mL (< 0.028)
[2020-07-16] MEDS ORDERED: Metoprolol Tartrate 25 MG TAB ONE ×2 (10:13→10:15)
[2020-07-16] MEDS ORDERED: hydrALAZINE 25 MG TAB ONE (10:13)
[2020-07-16] MEDS ORDERED: Enoxaparin Sodium 40 MG/0.4 ML SYRINGE ONE (10:13)
--- NOTE | 2020-07-16 10:58 | PDOC.EVN ---
Event Note - Event Note Event Note: Patient is a 74-year-old female who presented to the emergency department with headache, chest discomfort and was noted to have significantly elevated blood pressure. She was placed in observation for what appeared to be hypertensive urgency. She has had negative troponins. Telemetry is negative. Her blood pressure has improved. She says that she has discontinued her Procardia on her own because it was causing peripheral edema. She says she knows that is an old medicine because she took it a long time ago and she believes there is something new or that would be better that should be substituted. She is also on olmesartan, carvedilol and hydralazine for blood pressure control. Currently she continues to report some headache. Her nitroglycerin is discontinued. Case was discussed with Dr. Pichardo. He reports that she has no significant cardiac history but was referred to him primarily for peripheral edema. She is fully awake and alert. Her heart is regular without murmurs. Her lungs were clear. She has nonpitting trace peripheral edema. The patient's headache resolves with the discontinuation of the nitroglycerin and her blood pressure remains adequately controlled I anticipate discharging her for outpatient follow-up.
[2020-07-16] MEDS ORDERED: Losartan 25 MG TAB PO SCH (12:00)
[2020-07-16 12:39] LABS: Troponin I 0.013 ng/mL (< 0.028)
[2020-07-16] MEDS ORDERED: Sodium Chloride 0.9% 1,000 ML IV SCH (13:30)
[2020-07-16 13:36] VITALS: BMI 46.8
[2020-07-16] MEDS ORDERED: Carvedilol 6.25 MG TAB PO SCH (17:00)
[2020-07-16 17:15] VITALS: BP 143/69
[2020-07-16 17:39] VITALS: TEMP 98.7
[2020-07-16] MEDS ORDERED: Rosuvastatin 20 MG TAB PO SCH (21:00)
[2020-07-17] MEDS ORDERED: Glimepiride 4 MG TAB PO SCH (08:00)
[2020-07-17] MEDS ORDERED: Potassium Chloride 20 MEQ TAB PO SCH (08:00)
[2020-07-17] MEDS ORDERED: Losartan 25 MG TAB PO SCH (09:00)
[2020-07-17] MEDS ORDERED: Gabapentin 300 MG CAP PO SCH (09:00)
[2020-07-17] MEDS ORDERED: FLU VACC QS2020-21(65YR UP)/PF 240 MCG/0.7 ML SYRINGE IM ONE (14:30)
--- NOTE | 2020-07-19 15:55 | PDOC.DS.DS ---
Provider - Provider Date of Admission: 07/16/20 05:13 Date of Discharge: 07/16/20 Admitting Provider: Lazaro Gil MD Primary Care Physician: Nannette Lincoln MD Course - Hospital Course Hospital Course: Patient is a 74-year-old female who presented to the emergency department with headache, chest discomfort and was noted to have significantly elevated blood pressure. She was placed in observation for what appeared to be hypertensive urgency. She says that she has discontinued her Procardia on her own because it was causing peripheral edema. She is also on olmesartan, carvedilol and hydralazine for blood pressure control. She has had negative troponins. Telemetry with unremarkable. Her blood pressure improved. She did have some headache related to Nitropaste given to her in the emergency department. This did ultimately resolve. Case was discussed with Dr. Pichardo. He says the patient was primarily referred to him for issues with peripheral edema. He agreed with the plan to alter her blood pressure medications and have her follow-up as an outpatient. Once the blood pressure was controlled and patient was feeling well she was felt to be stable for discharge to home with an increase in her hydralazine dosing and discontinuation of the Procardia formally. Resuscitation Status: 07/16/20 04:35 Resuscitation Status Routine Resuscitation Status: FULL: Full Resuscitation - Labs Lab Results: 07/16/20 03:18 07/16/20 03:18 - Physical Exam Vitals: Weight Weight 336 lb 2.56 oz Physical Exam: The patient was seen and examined on the day of discharge. Problem - Problem (1) Hypertensive urgency Code(s): I16.0 - HYPERTENSIVE URGENCY Status: Acute (2) Chest pain Code(s): R07.9 - CHEST PAIN, UNSPECIFIED Status: Acute (3) DM type 2 (diabetes mellitus, type 2) Status: Chronic Qualifiers: Diabetes mellitus skilled nursing insulin use: without skilled nursing use (4) Dyslipidemia Code(s): E78.5 - HYPERLIPIDEMIA, UNSPECIFIED Status: Chronic (5) HTN (hypertension) Code(s): I10 - ESSENTIAL (PRIMARY) HYPERTENSION Status: Chronic Qualifiers: Hypertension type: essential hypertension Qualified Code(s): I10 - Essential (primary) hypertension (6) Obesity Code(s): E66.9 - OBESITY, UNSPECIFIED Status: Chronic Qualifiers: Obesity classification: adult class 3 (BMI >= 40) Body mass index: BMI 45.0-49.9 Plan - Discharge Medications Prescriptions: hydrALAZINE [Apresoline] 25 mg PO TID #90 tab Home Medications: Medication Instructions Recorded Confirmed Type Allopurinol 100 mg PO DAILY 03/06/18 07/16/20 History Carvedilol [Coreg] 12.5 mg PO DAILY 03/06/18 07/16/20 History Rosuvastatin [Crestor] 5 mg PO HS 03/06/18 07/16/20 History Cholecalciferol (Vitamin D3) 5,000 unit PO DAILY 03/31/19 07/16/20 History [Vitamin D3] Furosemide [Lasix] 40 mg PO MWF 03/31/19 07/16/20 History Olmesartan Medoxomil [Benicar] 40 mg PO DAILY 03/31/19 07/16/20 History Potassium Chloride [K-Dur] 20 meq PO MWF 03/31/19 07/16/20 History traMADol HCl [Tramadol HCl] 50 mg PO PRN PRN 03/31/19 07/16/20 History Aspirin [Ecotrin Low Strength] 81 mg PO DAILY tab 04/05/19 07/16/20 Rx Glimepiride [Amaryl] 2 mg PO DAILY #0 04/05/19 07/16/20 Rx hydrALAZINE [Apresoline] 25 mg PO TID #90 tab 07/16/20 Rx Allergies: No Known Allergies Allergy (Verified 07/16/20 13:49) - Discharge Instructions Activity:: Activity as Tolerated Nourishment:: Heart Healthy Diet, Low Sodium Diet - Follow up Plan Referrals: Dariel Pichardo MD [Active] - 7 Days (Call to set up follow up appointment in 7 days.) Nannette Lincoln MD [Primary Care Provider] - 10 Days (Call to set up follow up appointment in 10 days.) Disposition: HOME Quality - Care Measures CORE MEASURES:: N/A
== END 2020-07-16 18:45 | disposition home or self-care (01) ==
LOC: ERS 02:13 → ERHOLD 05:13 → 2NO 12:31
PROVIDERS: ADMIT Internal Medicine; ATTEND Internal Medicine
DX: I16.0 Hypertensive urgency (principal); E11.9 Type 2 diabetes mellitus without complications; E78.5 Hyperlipidemia, unspecified; I10 Essential (primary) hypertension; E66.9 Obesity, unspecified; Z68.42 Body mass index [BMI] 45.0-49.9, adult; Z79.82 Long term (current) use of aspirin; Z79.84 Long term (current) use of oral hypoglycemic drugs; Z79.899 Other long term (current) drug therapy; Z87.891 Personal history of nicotine dependence; R60.9 Edema, unspecified
CPT/HCPCS: 71045; 80053; 82962; 84484 ×2; 85025; 93005; 94760; 96372; 96374; 99285; G0378 ×2; 36415; 36416; J1650; J2405

== ENCOUNTER 2020-07-20 23:52 | Inpatient (IN) | payer MEDICARE ==
[2020-07-21 00:37] LABS: #Basophils 0.1 thou/uL (0.0-0.2); #Eosinphils 0.3 thou/uL (0.0-0.7); #Lymphocytes 2.6 thou/uL (1.20-3.40); #Monocytes 0.8 thou/uL (0.11-0.59); #Neutrophils 5.2 thou/uL (1.40-6.50); %Basophils 0.8 % (0.0-1.0); %Eosinophils 2.9 % (0.0-10.0); %Monocytes 8.9 % (0.0-10.0); %Neutrophils 58.3 % (42.0-75.0); Hemoglobin 13.5 g/dL (12.0-16.0); Mean Corpuscular HGB CONC 33.2 g/dL (32.0-36.0); Mean Corpuscular Hemoglobin 29.8 pg (27.0-31.0); Mean Corpuscular Volume 89.7 fL (78.0-98.0); Mean Platelet Volume 8.8 fL (7.4-10.4); Platelet Count 209 thou/uL (130-400); Red Blood Cell (RBC) Count 4.53 mill/uL (4.20-5.40)
[2020-07-21 01:04] LABS: ALT (SGPT) 20 U/L (8-55); AST (SGOT) 23 U/L (5-34); Albumin 3.5 g/dL (3.4-4.8); Alkaline Phosphatase 107 U/L (40-110); Anion Gap 12 mmol/L (10-20); BUN (Urea Nitrogen) 16 mg/dL (9.8-20.1); Bilirubin, Total 0.3 mg/dL (0.2-1.2); Calc. Creatinine Clearance 0 mL/min (70-130); Calcium 9.3 mg/dL (7.8-10.44); Carbon Dioxide 30 mmol/L (23-31); Chloride 105 mmol/L (98-107); Globulin 3.5 g/dL (2.4-3.5); Glucose 145 mg/dL (83-110); Potassium 4.3 mmol/L (3.5-5.1); Sodium 143 mmol/L (136-145)
[2020-07-21] MEDS ORDERED: Acetaminophen 500 MG TAB ONE (01:23)
[2020-07-21] MEDS ORDERED: Meclizine HCl 25 MG TAB ONE (01:34)
[2020-07-21 02:18] LABS: Bilirubin Negative (Negative); Blood, Urine Negative (Negative); Clarity Clear (Clear); Glucose, Urine (Dipstick) Normal (Negative); Ketone, Urine Negative (Negative); Leukocyte Negative Leu/uL (Negative); Nitrite Negative (Negative); Protein, Urine (Dipstick) Negative (Neg-Trace); Specific Gravity, Urine 1.026 (1.002-1.036); pH, Urine 6.5 (5.0-9.0)
[2020-07-21] MEDS ORDERED: Aspirin Chewable 81 MG TAB ONE (02:23)
[2020-07-21] MEDS ORDERED: Labetalol HCl 100 MG/20 ML VIAL SLOW IVP PRN (02:28)
[2020-07-21] MEDS ORDERED: Insulin Regular 300 UNITS/3 ML VIAL SC PRN (02:28)
[2020-07-21] MEDS ORDERED: hydrALAZINE 20 MG/ML VIAL SLOW IVP PRN (02:28)
--- NOTE | 2020-07-21 02:34 | PDOC.HHP ---
Hospitalist HPI - History of Present Illness Dizziness/orthostasis History of Present Illness: Patient is a 74 year old female with PMH HTN, HLD, DM, CVA who presents to ED for dizziness. She has had this for a few weeks now, it resembles orthostasis and mostly occurs when she stands up and walks, however sometime the dizziness stays all day, it is less of a vertigo sensation and more of a presyncope/vaso vagal description, no chest pain or shortnss of breath associated with it. After developing these symptoms about 1.5 weeks ago, she was admitted and discharged on the 10th of this month after being prescribed a new trial of amaryl, hydralazine and aspirin on top of old medications she took, she reports dizziness persisted and got worse over time. She does not describe any face or body numbness or weakness, no focal neurologic sympotoms. Her BP in the ED was extremely high, Hospitalist ROS - Review of Systems Constitutional: denies: fever, chills, sweats, weakness, malaise, other Eyes: denies: pain, vision change, conjunctivae inflammation, eyelid inflammation, redness, other ENT: denies: ear pain, ear discharge, nose pain, nose discharge, nose congestion, mouth pain, mouth swelling, throat pain, throat swelling, other Respiratory: denies: cough, dry, shortness of breath, hemoptysis, SOB with excertion, pleuritic pain, sputum, wheezing, other Cardiovascular: denies: chest pain, palpitations, orthopnea, paroxysmal noc. dyspnea, edema, light headedness, other Gastrointestinal: denies: nausea, vomiting, abdominal pain, diarrhea, constipation, melena, hematochezia, other Genitourinary: denies: dysuria, frequency, incontinence, hematuria, retention, other Musculoskeletal: denies: neck pain, shoulder pain, arm pain, back pain, hand pain, leg pain, foot pain, other Skin: denies: rash, lesions, mikala, bruising, other Neurological: denies: weakness, numbness, incoordination, change in speech, c onfusion, seizures, other Other: +dizziness All other systems reviewed; all pertinent +/- noted in HPI/Subj - Medication Medications: D3 DOTS TABLET : Strength - 2,000 unit : ORAL Patient Dose: 5000 units Oral once a day. potassium chloride oral TABLET, EXT RELEASE, PARTICLES/CRYSTALS : Strength - 20 mEq : ORAL Patient Dose: 1 tab(s) Oral every other day.w/ furosemide. furosemide oral TABLET : Strength - 40 mg : ORAL Patient Dose: 1 tab(s) Oral once a day. Crestor TABLET : Strength - 5 mg : ORAL Patient Dose: 1 tab(s) Oral once a day. carvedilol TABLET : Strength - 6.25 mg : ORAL Patient Dose: 12.5 mg Oral once a day (in the evening). Benicar TABLET : Strength - 40 mg : ORAL Patient Dose: 40 mg Oral once a day. glimepiride TABLET : Strength - 4 mg : ORAL Patient Dose: 4 mg Oral once a day. colestipol TABLET : Strength - 1 gram : ORAL Patient Dose: 1 g Oral 2 times a day. cloNIDine HCl TABLET : Strength - 0.1 mg : ORAL Patient Dose: 0.1 mg Oral.one tab in AM and 2 tabs in pm. allopurinol TABLET : Strength - 100 mg : ORAL Patient Dose: 100 mg Oral every other day. traMADol TABLET : Strength - 50 mg : ORAL Patient Dose: 50 mg Oral once a day. hydrALAZINE oral tablet : Strength - 10 mg : ORAL Patient Dose: 20 mg Oral. aspirin oral tablet : Strength - 81 mg : ORAL Patient Dose: Unknown. Hospitalist History - Past Medical History Other Medical History: HTN, HLD, DM, CVA - Past Surgical History Other Surgical History: neck and back surgery cholecystectomy hysterectomy - Family History Family History: reports: no pertinent history - Social History Smoking Status: Former smoker Alcohol: reports: None Drugs: reports: none - Exam General Appearance: NAD, awake alert Eye: PERRL, anicteric sclera ENT: normocephalic atraumatic, no oropharyngeal lesions, moist mucosa Neck: supple, symmetric, no JVD, no thyromegaly, no lymphadenopathy, no carotid bruit Heart: RRR, no murmur, no gallops, no rubs, normal peripheral pulses Respiratory: CTAB, no wheezes, no rales, no ronchi, normal chest expansion, no tachypnea, normal percussion Gastrointestinal: soft, non-tender, non-distended, normal bowel sounds, no palpable masses, no hepatomegaly, no splenomegaly, no bruit Extremities: no cyanosis, no clubbing, no edema Skin: normal turgor, no lesions, no rashes Neurological: cranial nerve grossly intact, normal sensation to touch, no weakness, no focal deficits, no new deficit Musculoskeletal: normal tone, normal strength, no muscle wasting Psychiatric: normal affect, normal behavior, A&O x 3 Hospitalist Results - Labs Result Diagrams: 07/21/20 00:26 07/21/20: Lab results: WBC 9.0 thou/uL (4.8-10.8) 07/21/20 00: Hgb 13.5 g/dL (12.0-16.0) 07/21/20 00: Hct 40.6 % (36.0-47.0) 07/21/20: MCV 89.7 fL (78.0-98.0) 07/21/20: Plt Count 209 thou/uL (130-400) 07/21/20: Neutrophils % 58.3 % (42.0-75.0) 07/21/20 00: Sodium 143 mmol/L (136-145) 07/21/20 00: Potassium 4.3 mmol/L (3.5-5.1) 07/21/20 00: Chloride 105 mmol/L (98-107) 07/21/20: Carbon Dioxide 30 mmol/L (23-31) 07/21/20: BUN 16 mg/dL (9.8-20.1) 07/21/20 00: Creatinine 0.84 mg/dL (0.6-1.1) 07/21/20 00: Glucose 145 mg/dL (83-110) H 07/21/20 00: Calcium 9.3 mg/dL (7.8-10.44) 07/21/20 00: Total Bilirubin 0.3 mg/dL (0.2-1.2) 07/21/20: AST 23 U/L (5-34) 07/21/20: ALT 20 U/L (8-55) 07/21/20 00: Alkaline Phosphatase 107 U/L (40-110) 07/21/20 00: Troponin I 0.018 ng/mL (< 0.028) 07/21/20 00: Serum Total Protein 7.0 g/dL (6.0-8.3) 07/21/20 00:26 Albumin 3.5 g/dL (3.4-4.8) 07/21/20 00:26 Urine Ketones Negative mg/dL (Negative) 07/21/20 01:01 Urine Blood Negative (Negative) 07/21/20 01:01 Urine Nitrite Negative (Negative) 07/21/20 01:01 Ur Leukocyte Esterase Negative Jose Francisco/uL (Negative) 07/21/20 01:01 Hospitalist H&P A/P - Plan Plan: Patient is a 74 year old female with PMH HTN, HLD, DM, CVA who presents to ED for dizziness. # dizziness/orthostasis # uncontrolled HTN patient with persisting HTN and dizziness that is positional, she is on olmesa rtan, lasix, hydralazine, BP in 170-200 systolic range. I would want to rule out things like beta karyn intolerane or carotid artery disease, or perhaps overdiuresis from lasix. - will start instead the following: amlodipine 10mg PO daily olmesartan 40mg PO daily lasix 20mg PO daily + 10mg KCL tab - this will hopefully lower the actual blood pressure more than other regimen, and also removes the beta karyn which may contribute to the dizziness - will perform CTA head and neck to rule out carotid/vertebral artery disease and MRI of brain, as well as consult neurology to rule out posterior stroke. continue ASA and statin - orthostatic vital signs ordered, continue on resource conservation specialist to rule out subacute arrhythmia - echo performed 04/01/2019 w/ diastolic dysfunction, EF 55-60%, mild MR/TR. consider rechecking if no other cause can be found # DM - SSI # HLD - statin DVT/GI ppx full code
[2020-07-21] MEDS ORDERED: Electrolyte Replacement Protocol 1 EACH FS SCH (02:45)
[2020-07-21 03:43] VITALS: BMI 48.4
[2020-07-21] MEDS ORDERED: Dextrose 50% Abboject 50 ML SYRINGE SLOW IVP PRN (05:01)
[2020-07-21] MEDS ORDERED: Dextrose 5% in Water 1,000 ML IV PRN (05:01)
[2020-07-21 06:00] LABS: Syphilis Antibody Nonreactive (Nonreactive); Syphilis Antibody Index 0.04 S/CO (<1.00 Non-Reactive)
[2020-07-21 06:05] LABS: Thyroid Stimulating Hormone 0.7483 uIU/mL (0.35-4.94)
--- NOTE | 2020-07-21 08:11 | CT ---
PRELIMINARY REPORT/[facility]/EMERGENCY AFTER HOURS PROCEDURE EXAM: CTA Head and Neck with Intravenous Contrast. CLINICAL HISTORY: PERSISTENT ORTHOSTASIS// TECHNIQUE: Axial CTA images of the head and neck performed with intravenous contrast. Two-dimensional MIP and/or three-dimensional MIP and volume rendered reformations were performed. Note: Per PQRS, the description of internal carotid artery percent stenosis, including 0 percent or n ormal exam, is based on [place] Symptomatic Carotid Endarterectomy Trial (NASCET) criteria. CONTRAST: With; ISOVUE 370;90mL COMPARISON: CT brain dated July 21, 2020 FINDINGS: CTA NECK: COMMON CAROTID ARTERIES No significant stenosis. No dissection or occlusion. Minimal atherosclerotic change at the bifurcati ons bilaterally. INTERNAL CAROTID ARTERIES No stenosis by NASCET criteria. No dissection or occlusion. VERTEBRAL ARTERIES No significant stenosis. No dissection or occlusion. CTA HEAD: ANTERIOR CEREBRAL ARTERIES No significant stenosis. No occlusion. No aneurysm. MIDDLE CEREBRAL ARTERIES No significant stenosis. No occlusion. No aneurysm. POSTERIOR CEREBRAL ARTERIES No significant stenosis. No occlusion. No aneurysm. BASILAR ARTERY No significant stenosis. No occlusion. No aneurysm. OTHER: SOFT TISSUES No acute finding. No masses or lymphadenopathy. BONES No acute osseous abnormality. IMPRESSION: Unremarkable CTA of the head and neck. ELECTRONICALLY SIGNED BY: Bharat Hurtado MD Jul 21, 2020 5:49:57 AM DIGITAL BUSINESS ANALYST This report is intended for review by the ordering physician only, in accordance of law. If you recei ve this report in error, please call [facility] at [phone]. FINAL REPORT CTA Angio Head W WO Con CT angiogram neck with contrast History: Dizziness Comparison: CT brain same day Findings: CT angiogram of the head and neck performed after the intravenous administration of contras t. 3-D rendering provided. Extensive motion artifact throughout the neck. Impression: Findings and impression are concordant with the preliminary report. Transcribed Date/Time: 07/21/2020 8:20 AM
--- NOTE | 2020-07-21 08:13 | CT ---
PRELIMINARY REPORT/[facility]/EMERGENCY AFTER HOURS PROCEDURE: EXAM: CT Head Without Intravenous Contrast. CLINICAL HISTORY: PT EXPERIENCED A DIZZY SPELL ALL DAY 07/20/2020// TECHNIQUE: Axial computed tomography images of the head/brain without intravenous contrast. COMPARISON: None provided. FINDINGS: BRAIN: No acute intraparenchymal hemorrhage. No mass lesion. No CT evidence for acute territorial infarct. N o midline shift or extra-axial collection. Mild generalized brain atrophy without focal intracranial lesion. VENTRICLES: No hydrocephalus. ORBITS: Cataract surgery right eye, no evidence of acute complication. SINUSES AND MASTOIDS: The paranasal sinuses and mastoid air cells are clear. SOFT TISSUES: No significant facial or scalp soft tissue swelling evident. No radiopaque foreign body is seen. BONES: No acute skull fracture. IMPRESSION: No acute intracranial abnormality. ELECTRONICALLY SIGNED BY: Venancio Whatley M.D. Jul 21, 2020 1:19:40 AM RF TEST ENGINEER This report is intended for review by the ordering physician only, in accordance of law. If you recei ve this report in error, please call [facility] at [phone]. FINAL REPORT EMERGENT AFTER HOURS CT OF THE BRAIN WITHOUT CONTRAST: COMPARISON: 01/20/2020. FINDINGS/IMPRESSION: I agree with the findings and impression given in the preliminary report per [facility] physici an. No evidence of acute intracranial abnormality. POS: GEMA
[2020-07-21] MEDS ORDERED: Amlodipine 10 MG TAB PO SCH (09:00)
[2020-07-21] MEDS: Aspirin 81 mg Enteric Coated Tablet PO SCH (09:27)
[2020-07-21] MEDS: hydrALAZINE 25 MG TAB PO SCH ×3 (09:27→21:22)
[2020-07-21] MEDS: Potassium Chloride 10 MEQ TAB PO SCH (09:27)
[2020-07-21] MEDS: Furosemide 20 MG TAB PO SCH (09:27)
[2020-07-21] MEDS: Losartan 25 MG TAB PO SCH (09:27)
[2020-07-21] MEDS: Enoxaparin Sodium 40 MG/0.4 ML SYRINGE SC SCH (09:28)
[2020-07-21] MEDS: Famotidine 20 MG TAB PO SCH ×2 (09:28→21:22)
[2020-07-21] MEDS: Allopurinol 100 MG TAB PO SCH (09:28)
[2020-07-21] MEDS ORDERED: Iopamidol 370 76% 100 ML VIAL ONE (09:37)
[2020-07-21 12:30] LABS: SARS-CoV-2 MS2 Positive; SARS-CoV-2 N Gene Negative; SARS-CoV-2 S Gene Negative; SARS-CoV-2 by NAA Not Detected (NotDetected); SARS-CoV-2 orf1ab Negative
--- NOTE | 2020-07-21 13:19 | CON ---
NEUROLOGY CONSULTATION DATE OF CONSULTATION: 07/21/2020 REASON FOR CONSULTATION: Dizziness, rule out posterior circulation stroke. HISTORY OF PRESENT ILLNESS: Ms. Zulema Vang is a 74-year-old female with medical history significant for hypertension, hyperlipidemia, diabetes, prior CVA, presented to the emergency room with complaint of dizziness. Per the patient, she has been having dizziness whenever she stands up and walk and some times it stays all day. The patient denies room spinning in front of her eyes, nausea, vomiting, headache, chest pain, abdominal pain, focal numbness, focal paresthesias, recent infection, or recent exposure to COVID associated with this dizziness. In the emergency room, she was found to be in hypertensive emergency and the patient has developed this symptom about a week and half ago when she was admitted and discharged and prescribed a new trial of Amaryl, hydralazine, and aspirin. She continues have dizziness and was admitted to rule out posterior circulation stroke. REVIEW OF SYSTEMS: All systems reviewed and were negative except the pertinent positives and negatives mentioned in the HPI. MEDICATIONS: 1. Vitamin D3 of 5000 units once daily. 2. Furosemide 40 mg once a day. 3. Crestor 5 mg once daily. 4. Carvedilol 12.5 mg once daily. 5. Benicar 40 mg once daily. 6. Glimepiride 4 mg once daily. 7. Colestipol 1 g two times a day. 8. Clonidine 0.1 mg one tablet p.o. to 1:00 a.m. and two p.o. q.p.m. 9. Allopurinol 100 mg every other day. 10. Tramadol 50 mg once daily. 11. Aspirin 81 mg daily. Allergies: No known drug allergies PAST MEDICAL HISTORY: Hypertension, hyperlipidemia, diabetes mellitus, prior CVA. PAST SURGICAL HISTORY: Neck and back surgery, cholecystectomy, hysterectomy. FAMILY HISTORY: No pertinent family history. SOCIAL HISTORY: The patient is a former smoker. Denies alcohol or illegal drug use. PHYSICAL EXAMINATION: General Appearance: NAD, awake alert Eye: PERRL, anicteric sclera ENT: normocephalic atraumatic, no oropharyngeal lesions, moist mucosa Neck: supple, symmetric, no JVD, no thyromegaly, no lymphadenopathy, no carotid bruit Heart: RRR, no murmur, no gallops, no rubs, normal peripheral pulses Respiratory: CTAB, no wheezes, no rales, no ronchi, normal chest expansion, no tachypnea, normal percussion Gastrointestinal: soft, non-tender, non-distended, normal bowel sounds, no palpable masses, no hepatomegaly, no splenomegaly, no bruit Extremities: no cyanosis, no clubbing, no edema Skin: normal turgor, no lesions, no rashes Neurological: Mental status, the patient is alert and oriented to person, place, and time. Speech is clear. Recent and remote memory, intact. Cranial nerves 2 through 12 intact. Motor, muscle tone and bulk are normal. Strength 5/5 bilaterally. Sensory intact. Cerebellar, finger-nose testing intact. Gait deferred due to the patient's safety reason. DATA REVIEWED: I reviewed the labs, which are essentially unremarkable. Head CT did not reveal any acute intracranial pathology. WBC 9.0 thou/uL (4.8-10.8) 07/21/20 00:26 Hgb 13.5 g/dL (12.0-16.0) 07/21/20 00:26 Hct 40.6 % (36.0-47.0) 07/21/20 00:26 MCV 89.7 fL (78.0-98.0) 07/21/20 00:26 Plt Count 209 thou/uL (130-400) 07/21/20 00: Neutrophils % 58.3 % (42.0-75.0) 07/21/20 00:26 Sodium 143 mmol/L (136-145) 07/21/20 00:26 Potassium 4.3 mmol/L (3.5-5.1) 07/21/20 00:26 Chloride 105 mmol/L (98-107) 07/21/20 00:26 Carbon Dioxide 30 mmol/L (23-31) 07/21/20 00:26 BUN 16 mg/dL (9.8-20.1) 07/21/20 00:26 Creatinine 0.84 mg/dL (0.6-1.1) 07/21/20 00:26 Glucose 145 mg/dL (83-110) H 07/21/20 00:26 Calcium 9.3 mg/dL (7.8-10.44) 07/21/20 00:26 Total Bilirubin 0.3 mg/dL (0.2-1.2) 07/21/20 00:26 AST 23 U/L (5-34) 07/21/20 00:26 ALT 20 U/L (8-55) 07/21/20 00:26 Alkaline Phosphatase 107 U/L (40-110) 07/21/20 00:26 Troponin I 0.018 ng/mL (< 0.028) 07/21/20 00:26 Serum Total Protein 7.0 g/dL (6.0-8.3) 07/21/20 00:26 Albumin 3.5 g/dL (3.4-4.8) 07/21/20 00:26 Urine Ketones Negative mg/dL (Negative) 07/21/20 01:01 Urine Blood Negative (Negative) 07/21/20 01:01 Urine Nitrite Negative (Negative) 07/21/20 01:01 Ur Leukocyte Esterase Negative Jose Francisco/uL (Negative) 07/21/20 01:01 ASSESSMENT AND PLAN: Ms. Zulema Vang is a 74-year-old female with medical history significant for hypertension, hyperlipidemia, diabetes, and prior cerebrovascular accident, presented with dizziness on standing up and during walking. Check orthostatics in the setting of hypertensive emergency. Continue medical management of hypertension per primary team. There is a concern about posterior circulation stroke, so consider repeat head CT tomorrow since the patient is unable to have MRI. CTA of the head and neck reviewed, which did not reveal hemodynamically significant stenosis. Continue telemetry to rule out arrhythmias. Continue aspirin for secondary stroke prevention. Monitor blood pressure and blood glucose. Check hemoglobin A1c, fasting lipid panel, and TSH. Neuro checks every 4 hours. Continue home medications. Continue medical management per primary team, PT/OT/Speech. Deep venous thrombosis prophylaxis. We will continue to follow. Thank you for the consult. Job ID: [id number]
--- NOTE | 2020-07-21 14:26 | PDOC.EVN ---
Event Note - Event Note Event Note: This patient was known to me from admission last week. The patient presented at that time with poorly controlled blood pressure. Patient had peripheral edema with Procardia and had discontinued it. She was subsequently noted to have some headache related to nitroglycerin. Once that resolved the plan was for discharge to have her double up on her hydralazine to 50 mg 3 times daily. Do not believe that happened. Patient is now back with dizziness and still having some blood pressure issues. She also is having some dizziness issues. Her exam is generally unremarkable. She is obese and has some trace peripheral edema. Heart and lungs are normal. She has had a negative work-up this far. She is unable to do the MRI to assess for possible posterior infarct. At this time the plan will be to increase the hydralazine to 25 mg 3 times daily. We will discontinue the amlodipine that was ordered by the admitting provider as that will likely worsen the peripheral edema problem. Neurology has seen the patient as well and recommends a repeat CT of the brain tomorrow to rule out CVA.
[2020-07-21] MEDS ORDERED: Rosuvastatin 20 MG TAB PO SCH (21:00)
[2020-07-21] MEDS: Rosuvastatin 5 MG TAB PO SCH (21:22)
[2020-07-21] MEDS: Meclizine HCl 25 MG TAB PO PRN (21:40)
[2020-07-22 04:44] LABS: #Basophils 0.1 thou/uL (0.0-0.2); #Eosinphils 0.2 thou/uL (0.0-0.7); #Lymphocytes 2.1 thou/uL (1.20-3.40); #Monocytes 0.6 thou/uL (0.11-0.59); #Neutrophils 3.8 thou/uL (1.40-6.50); %Basophils 1.5 % (0.0-1.0); %Eosinophils 2.6 % (0.0-10.0); %Monocytes 9.5 % (0.0-10.0); %Neutrophils 55.4 % (42.0-75.0); Mean Corpuscular HGB CONC 31.7 g/dL (32.0-36.0); Mean Corpuscular Hemoglobin 28.4 pg (27.0-31.0); Mean Corpuscular Volume 89.5 fL (78.0-98.0); Mean Platelet Volume 8.3 fL (7.4-10.4); Platelet Count 196 thou/uL (130-400); RBC Distribution Width 12.9 % (11.5-14.5); Red Blood Cell (RBC) Count 4.22 mill/uL (4.20-5.40); White Blood Cell (WBC) Count 6.8 thou/uL (4.8-10.8)
[2020-07-22 05:04] LABS: Hemoglobin A1c 6.2 % (4.0-6.0)
[2020-07-22 05:11] LABS: Anion Gap 12 mmol/L (10-20); BUN (Urea Nitrogen) 11 mg/dL (9.8-20.1); Calc. Creatinine Clearance 175 mL/min (70-130); Calcium 8.8 mg/dL (7.8-10.44); Carbon Dioxide 24 mmol/L (23-31); Chloride 108 mmol/L (98-107); Glucose 112 mg/dL (83-110); Magnesium 1.7 mg/dL (1.6-2.6); Potassium 3.9 mmol/L (3.5-5.1); Sodium 140 mmol/L (136-145)
[2020-07-22] MEDS ORDERED: Magnesium 2 GM/50 ML 2 GM in Premix Bag 1 BAG IVPB SCH (06:30)
[2020-07-22] MEDS: Famotidine 20 MG TAB PO SCH ×2 (09:10→20:52)
[2020-07-22] MEDS: Losartan 25 MG TAB PO SCH (09:10)
[2020-07-22] MEDS: hydrALAZINE 25 MG TAB PO SCH ×4 (09:11→20:52)
[2020-07-22] MEDS: Furosemide 20 MG TAB PO SCH (09:11)
[2020-07-22] MEDS: Allopurinol 100 MG TAB PO SCH (09:11)
[2020-07-22] MEDS: Potassium Chloride 10 MEQ TAB PO SCH (09:11)
[2020-07-22] MEDS: Enoxaparin Sodium 40 MG/0.4 ML SYRINGE SC SCH (09:12)
[2020-07-22] MEDS: Aspirin 81 mg Enteric Coated Tablet PO SCH (09:12)
--- NOTE | 2020-07-22 10:10 | CT ---
CT HEAD WITHOUT CONTRAST: INDICATION: Possible CVA. Followup stroke. COMPARISON: Comparison is made to CT Head 07/21/2020. FINDINGS: Ventricles remain normal size and position. Very mild chronic ischemic white matter change. There i s no evidence of cortical infarct. There is no edema, mass, hemorrhage, or evidence of infract. No interval change. IMPRESSION: No acute finding or interval change noted. POS: AGW
[2020-07-22] MEDS ORDERED: Carvedilol 3.125 MG TAB PO SCH (12:15)
[2020-07-22] MEDS ORDERED: hydrALAZINE 20 MG/ML VIAL SLOW IVP PRN (13:55)
--- NOTE | 2020-07-22 14:04 | CT ---
PRELIMINARY REPORT/[facility]/EMERGENCY AFTER HOURS PROCEDURE EXAM: CTA Head and Neck with Intravenous Contrast. CLINICAL HISTORY: PERSISTENT ORTHOSTASIS// TECHNIQUE: Axial CTA images of the head and neck performed with intravenous contrast. Two-dimensional MIP and/or three-dimensional MIP and volume rendered reformations were performed. Note: Per PQRS, the description of internal carotid artery percent stenosis, including 0 percent or n ormal exam, is based on [place] Symptomatic Carotid Endarterectomy Trial (NASCET) criteria. CONTRAST: With; ISOVUE 370;90mL COMPARISON: CT brain dated July 21, 2020 FINDINGS: CTA NECK: COMMON CAROTID ARTERIES No significant stenosis. No dissection or occlusion. Minimal atherosclerotic change at the bifurcati ons bilaterally. INTERNAL CAROTID ARTERIES No stenosis by NASCET criteria. No dissection or occlusion. VERTEBRAL ARTERIES No significant stenosis. No dissection or occlusion. CTA HEAD: ANTERIOR CEREBRAL ARTERIES No significant stenosis. No occlusion. No aneurysm. MIDDLE CEREBRAL ARTERIES No significant stenosis. No occlusion. No aneurysm. POSTERIOR CEREBRAL ARTERIES No significant stenosis. No occlusion. No aneurysm. BASILAR ARTERY No significant stenosis. No occlusion. No aneurysm. OTHER: SOFT TISSUES No acute finding. No masses or lymphadenopathy. BONES No acute osseous abnormality. IMPRESSION: Unremarkable CTA of the head and neck. ELECTRONICALLY SIGNED BY: Bharat Hurtado MD Jul 21, 2020 5:49:57 AM LOW PRESSURE BOILER OPERATOR This report is intended for review by the ordering physician only, in accordance of law. If you recei ve this report in error, please call [facility] at [phone]. FINAL REPORT CTA Angio Head W WO Con CT angiogram neck with contrast History: Dizziness Comparison: CT brain same day Findings: CT angiogram of the head and neck performed after the intravenous administration of contras t. 3-D rendering provided. Extensive motion artifact throughout the neck. Impression: Findings and impression are concordant with the preliminary report. Transcribed Date/Time: 07/22/2020 2:04 PM
[2020-07-22] MEDS ORDERED: hydrALAZINE 25 MG TAB PO SCH (14:15)
[2020-07-22] MEDS: Carvedilol 3.125 MG TAB PO SCH (16:41)
[2020-07-22] MEDS: HumaLOG 300 UNITS/3 ML VIAL SC PRN (17:18)
[2020-07-22] MEDS: Acetaminophen 325 MG TAB PO PRN (20:51)
[2020-07-22] MEDS: Rosuvastatin 5 MG TAB PO SCH (20:52)
--- NOTE | 2020-07-22 22:23 | PDOC.HOSPP ---
- Subjective Encounter Date: 07/22/20 Encounter Time: 15:20 Subjective: Patient seen and examined for hypertensive crisis. Feels generally weak and lightheaded. No new focal findings. Denies any chest pain or shortness of breath. - Objective Vital Signs & Weight: Vital Signs (12 hours) Temp Pulse Resp BP BP Pulse Ox 07/22/20 20:52 66 07/22/20 20:00 98.3 F 66 18 170/94 H 99 07/22/20 15:30 98.4 F 66 15 177/89 H 98 07/22/20 14:25 70 187/101 H 07/22/20 14:22 70 187/101 H 07/22/20 13:24 70 187/101 H 07/22/20 10:50 97.5 F L 70 20 161/91 H 99 Weight Admit Weight 337 lb 11.968 oz Weight 337 lb 11.968 oz I&O: 07/21/20 07/22/20 07/23/20 06:59 06:59 06:59 Intake Total 960 480 Balance 960 480 Result Diagrams: 07/22/20 04:18 07/22/20 04:18 Additional Labs: Accuchecks 07/22/20 07/22/20 07/22/20 21:27 16:45 10:32 POC Glucose 154 H 167 H 99 07/22/20 05:54 POC Glucose 115 H EKG Reviewed by me: Yes (Sinus rhythm on telemetry) Hospitalist ROS - Review of Systems Cardiovascular: denies: chest pain, palpitations, orthopnea, paroxysmal noc. dyspnea, edema, light headedness, other Gastrointestinal: denies: nausea, vomiting, abdominal pain, diarrhea, constipation, melena, hematochezia, other - Medication Medications: Active Medications Generic Name Dose Route Start Last Admin Trade Name Freq PRN Reason Stop Dose Admin Acetaminophen 650 mg 07/21/20 02:33 07/22/20 20:51 Acetaminophen 325 Mg Tab PO 650 mg Q4H PRN Administration Headache/Fever/Mild Pain (1-3) Allopurinol 100 mg 07/21/20 09:00 07/22/20 09:11 Allopurinol 100 Mg Tab PO 100 mg DAILY ELLEN Administration Aspirin 81 mg 07/21/20 09:00 07/22/20 09:12 Aspirin 81 Mg Enteric Coated Tablet PO 81 mg DAILY ELLEN Administration Carvedilol 3.125 mg 07/22/20 17:00 07/22/20 16:41 Carvedilol 3.125 Mg Tab PO 3.125 mg BID-WM ELLEN Administration Enoxaparin Sodium 40 mg 07/21/20 09:00 07/22/20 09:12 Enoxaparin Sodium 40 Mg/0.4 Ml Syringe SC 40 mg 0900 ELLEN Administration Famotidine 20 mg 07/21/20 09:00 07/22/20 20:52 Famotidine 20 Mg Tab PO 20 mg BID ELLEN Administration Furosemide 20 mg 07/21/20 09:00 07/22/20 09:11 Furosemide 20 Mg Tab PO 20 mg DAILY ELLEN Administration Hydralazine HCl 75 mg 07/22/20 15:00 07/22/20 20:52 Hydralazine 25 Mg Tab PO 75 mg TID ELLEN Administration Insulin Human Lispro 0 units 07/21/20 05:01 07/22/20 17:18 Humalog 300 Units/3 Ml Vial SC 2 unit .MILD SLIDING SCALE PRN Administration Mild Correctional Scale Losartan Potassium 100 mg 07/21/20 09:00 07/22/20 09:10 Losartan 25 Mg Tab PO 100 mg DAILY ELLEN Administration Meclizine HCl 25 mg 07/21/20 02:33 07/21/20 21:40 Meclizine Hcl 25 Mg Tab PO 25 mg Q8H PRN Administration Dizziness Potassium Chloride 10 meq 07/21/20 08:00 07/22/20 09:11 Potassium Chloride 10 Meq Tab PO 10 meq QAM-WM ELLEN Administration Rosuvastatin Calcium 5 mg 07/21/20 21:00 07/22/20 20:52 Rosuvastatin 5 Mg Tab PO 5 mg HS ELLEN Administration Sodium Chloride 10 ml 07/21/20 02:28 07/22/20 20:52 Flush - Normal Saline 10 Ml Syringe IVF 10 ml PRN PRN Administration Saline Flush - Exam General Appearance: NAD Neck: supple, no JVD Heart: RRR, no gallops Respiratory: no wheezes, no ronchi Gastrointestinal: soft, non-distended Extremities: no cyanosis, 2+ LE edema Neurological: no new deficit Hosp A/P - Plan DVT proph w/SCDs Dizzinessprobably due to uncontrolled hypertension Hypertensive urgency Diabetes mellitus type 2 Hypomagnesemia Morbid obesity with a BMI 48.5 Suspected obstructive sleep apnea Plan: Repeat CT brain negative. No MRI due to body habitus. Increase hydralazine d ose. Avoid amlodipine or Procardia XL due to generalized edema. Consult cardiology Dr. Pichardo due to uncontrolled blood pressure. Restart beta- blockers at low-dose. Sleep study as outpatient. Check orthostatic vitals every morning. Continue other medications as above
[2020-07-23] MEDS: Carvedilol 3.125 MG TAB PO SCH ×2 (08:13→16:08)
[2020-07-23] MEDS: hydrALAZINE 25 MG TAB PO SCH ×3 (08:13→21:00)
[2020-07-23] MEDS: Losartan 25 MG TAB PO SCH (08:13)
[2020-07-23] MEDS: Aspirin 81 mg Enteric Coated Tablet PO SCH (08:14)
[2020-07-23] MEDS: Furosemide 20 MG TAB PO SCH (08:14)
[2020-07-23] MEDS: Potassium Chloride 10 MEQ TAB PO SCH (08:14)
[2020-07-23] MEDS: Allopurinol 100 MG TAB PO SCH (08:14)
[2020-07-23] MEDS: Enoxaparin Sodium 40 MG/0.4 ML SYRINGE SC SCH (08:14)
[2020-07-23] MEDS: Famotidine 20 MG TAB PO SCH ×2 (08:14→21:00)
[2020-07-23] MEDS: HumaLOG 300 UNITS/3 ML VIAL SC PRN ×2 (11:33→17:18)
[2020-07-23] MEDS: Meclizine HCl 25 MG TAB PO PRN (12:02)
[2020-07-23] MEDS: Acetaminophen 325 MG TAB PO PRN ×2 (15:01→21:02)
[2020-07-23] MEDS ORDERED: Amlodipine 5 MG TAB PO SCH ×2 (16:00→21:00)
[2020-07-23] MEDS ORDERED: Hydrochlorothiazide 25 MG TAB PO SCH (16:00)
--- NOTE | 2020-07-23 16:25 | CON ---
DATE OF CONSULTATION: REASON FOR CONSULTATION: Hypertensive urgency. HISTORY OF PRESENT ILLNESS: Ms. Vang is a very pleasant 74-year-old woman, whom I have seen and evaluated in the past. She does have a previous history of hypertension. She presented with headache and marked increase in blood pressure. She states she has been on Procardia in the past that she states did not agree with her. She denied chest pain, pressure, shortness of breath, or other associated symptoms. CURRENT MEDICATIONS: Include; 1. Hydralazine. 2. Lasix. 3. Crestor. 4. Allopurinol. 5. Vitamin D3. 6. Coreg 12.5 b.i.d. 7. . 8. Benicar 40 daily. 9. Potassium. 10. Nifedipine 60 mg daily. 11. Aspirin. PAST MEDICAL HISTORY: Morbid obesity, hyperlipidemia, diabetes mellitus, hypertension. SURGICAL HISTORY: Cholecystectomy, wrist surgery, hysterectomy, and right foot repair. SOCIAL HISTORY: Negative. ALLERGIES: NONE. REVIEW OF SYSTEMS: A 10-point review of systems is reviewed as above, otherwise negative. PHYSICAL EXAMINATION: GENERAL: Patient is a pleasant woman, who is in no acute distress. The patient appears their stated age. VITAL SIGNS: Blood pressure 153/108, pulse 72, temperature 98.4. NEUROLOGIC: The patient is alert and oriented x3 with no focal neurologic deficits. HEENT: Sclerae without icterus. Mouth has moist mucous membranes with normal pallor. NECK: No JVD. Carotid upstroke brisk. No bruits bilaterally. LUNGS: Clear to auscultation with unlabored respirations. BACK: No scoliosis or kyphosis. CARDIAC: Regular rate and rhythm with normal S1 and S2. No S3 or S4 noted. No significant rubs, murmurs, thrills, or gallops noted throughout the precordium. PMI is not displaced. There is no parasternal heave. ABDOMEN: Soft, nontender, nondistended. No peritoneal signs present. No hepatosplenomegaly. No abnormal striae. EXTREMITIES: 2+ femoral and 2+ dorsalis pedis pulses. No cyanosis, clubbing, or edema. SKIN: No gross abnormalities. PERTINENT LABORATORY DATA: Hemoglobin 12.0, hematocrit 37.8. Creatinine 0.67. IMPRESSION: 1. Hypertensive urgency. 2. Diabetes mellitus. 3. Hyperlipidemia. 4. Obesity. RECOMMENDATIONS: At this point, we will change Ms. Vang's current medical therapy. I have switched her Lasix to hydrochlorothiazide with first dose now. We will also add Norvasc 5 mg one p.o. q.a.m. with first dose now. She likely has sleep apnea and will likely need outpatient sleep study. We would not seek a secondary cause at this point unless she fails medical therapy. Her LVEF does appear within normal limits. I also recommend restricting sodium. Job ID: [id number]
[2020-07-23] MEDS: Rosuvastatin 5 MG TAB PO SCH (21:00)
--- NOTE | 2020-07-23 22:13 | PDOC.HOSPP ---
- Subjective Encounter Date: 07/23/20 Encounter Time: 15:00 Subjective: Patient seen and examined for generalized weakness with hypertensive crisis. Denies any chest pain or shortness of breath. No new focal deficit. - Objective Vital Signs & Weight: Vital Signs (12 hours) Temp Pulse Pulse Resp BP BP BP 07/23/20 21:00 88 07/23/20 20:00 98.0 F 88 20 167/98 H 07/23/20 15:16 98.1 F 82 20 166/94 H 07/23/20 12:50 79 171/103 H 07/23/20 11:50 98.4 F 72 16 152/108 H Pulse Ox 07/23/20 21:00 07/23/20 20:00 99 07/23/20 15:16 99 07/23/20 12:50 07/23/20 11:50 97 Weight Admit Weight 337 lb 11.968 oz Weight 337 lb 11.968 oz I&O: 07/22/20 07/23/20 07/24/20 06:59 06:59 06:59 Intake Total 960 480 720 Balance 960 480 720 Result Diagrams: 07/22/20 04:18 07/22/20 04:18 Additional Labs: Accuchecks 07/23/20 07/23/20 07/23/20 16:40 10:34 05:36 POC Glucose 176 H 157 H 146 H Abnormal Lab Results - Last 48 hrs 07/22/20 04:18: Chloride 108 H 07/22/20 04:18: MCHC 31.7 L, Basophils % 1.5 H, Monocytes # 0.6 H 07/22/20 04:18: Hemoglobin A1c 6.2 H EKG Reviewed by me: Yes (Sinus rhythm on telemetry) Hospitalist ROS - Review of Systems Respiratory: denies: cough, dry, shortness of breath, hemoptysis, SOB with excertion, pleuritic pain, sputum, wheezing, other Cardiovascular: denies: chest pain, palpitations, orthopnea, paroxysmal noc. dyspnea, edema, light headedness, other - Medication Medications: Active Medications Generic Name Dose Route Start Last Admin Trade Name Freq PRN Reason Stop Dose Admin Acetaminophen 650 mg 07/21/20 02:33 07/23/20 21:02 Acetaminophen 325 Mg Tab PO 650 mg Q4H PRN Administration Headache/Fever/Mild Pain (1-3) Allopurinol 100 mg 07/21/20 09:00 07/23/20 08:14 Allopurinol 100 Mg Tab PO 100 mg DAILY ELLEN Administration Amlodipine Besylate 5 mg 07/23/20 21:00 07/23/20 21:00 Amlodipine 5 Mg Tab PO 5 mg QPM ELLEN Administration Aspirin 81 mg 07/21/20 09:00 07/23/20 08:14 Aspirin 81 Mg Enteric Coated Tablet PO 81 mg DAILY ELLEN Administration Carvedilol 3.125 mg 07/22/20 17:00 07/23/20 16:08 Carvedilol 3.125 Mg Tab PO 3.125 mg BID-WM ELLEN Administration Enoxaparin Sodium 40 mg 07/21/20 09:00 07/23/20 08:14 Enoxaparin Sodium 40 Mg/0.4 Ml Syringe SC 40 mg 0900 ELLEN Administration Famotidine 20 mg 07/21/20 09:00 07/23/20 21:00 Famotidine 20 Mg Tab PO 20 mg BID ELLEN Administration Hydralazine HCl 75 mg 07/22/20 15:00 07/23/20 21:00 Hydralazine 25 Mg Tab PO 75 mg TID ELLEN Administration Insulin Human Lispro 0 units 07/21/20 05:01 07/23/20 17:18 Humalog 300 Units/3 Ml Vial SC 2 unit .MILD SLIDING SCALE PRN Administration Mild Correctional Scale Losartan Potassium 100 mg 07/21/20 09:00 07/23/20 08:13 Losartan 25 Mg Tab PO 100 mg DAILY ELLEN Administration Meclizine HCl 25 mg 07/21/20 02:33 07/23/20 12:02 Meclizine Hcl 25 Mg Tab PO 25 mg Q8H PRN Administration Dizziness Potassium Chloride 10 meq 07/21/20 08:00 07/23/20 08:14 Potassium Chloride 10 Meq Tab PO 10 meq QAM-WM ELLEN Administration Rosuvastatin Calcium 5 mg 07/21/20 21:00 07/23/20 21:00 Rosuvastatin 5 Mg Tab PO 5 mg HS ELLEN Administration Sodium Chloride 10 ml 07/21/20 02:28 07/22/20 20:52 Flush - Normal Saline 10 Ml Syringe IVF 10 ml PRN PRN Administration Saline Flush - Exam General Appearance: NAD Neck: supple, no JVD Heart: RRR, no gallops Respiratory: no wheezes, no ronchi Gastrointestinal: soft, non-tender, normal bowel sounds Extremities: 1+ LE edema Hosp A/P - Plan DVT proph w/SCDs Dizzinessprobably due to uncontrolled hypertension Hypertensive urgency Diabetes mellitus type 2 Hypomagnesemia Morbid obesity with a BMI 48.5 Suspected obstructive sleep apnea Plan: Cardiology input appreciated. Continue current dose of carvedilol. Amlodipine and hydrochlorothiazide started. Lasix discontinued. Continue hydralazine. Continue Benicar. Echocardiogram reviewed. Continue low-sodium diet
[2020-07-24] MEDS: traMADol HCl 50 MG TAB PO PRN ×2 (01:01→18:26)
[2020-07-24] MEDS ORDERED: Carvedilol 3.125 MG TAB PO SCH (06:50)
[2020-07-24] MEDS: Losartan 25 MG TAB PO SCH (08:02)
[2020-07-24] MEDS: Hydrochlorothiazide 25 MG TAB PO SCH (08:02)
[2020-07-24] MEDS: Amlodipine 5 MG TAB PO SCH (08:03)
[2020-07-24] MEDS: Allopurinol 100 MG TAB PO SCH (08:03)
[2020-07-24] MEDS: hydrALAZINE 25 MG TAB PO SCH ×3 (08:03→20:56)
[2020-07-24] MEDS: Famotidine 20 MG TAB PO SCH ×2 (08:03→20:56)
[2020-07-24] MEDS: Potassium Chloride 10 MEQ TAB PO SCH (08:03)
[2020-07-24] MEDS: Carvedilol 6.25 MG TAB PO SCH ×2 (08:04→17:31)
[2020-07-24] MEDS: Enoxaparin Sodium 40 MG/0.4 ML SYRINGE SC SCH (08:04)
[2020-07-24] MEDS: Aspirin 81 mg Enteric Coated Tablet PO SCH (08:04)
[2020-07-24] MEDS: Acetaminophen 325 MG TAB PO PRN ×3 (08:04→20:59)
[2020-07-24] MEDS: HumaLOG 300 UNITS/3 ML VIAL SC PRN ×2 (11:48→17:31)
--- NOTE | 2020-07-24 15:16 | PDOC.CPN ---
- Subjective Date: 07/24/20 Time: 13:05 Interval history: No overnight events. Bp remains high. - Review of Systems General: denies: fever/chills, weight/appetite/sleep changes, night sweats, fatigue Respiratory: denies: cough, congestion, shortness of breath, exercise intolerance Cardiovascular: denies: chest pain, palpitation, edema, paroxysmal nocturnal dyspnea, orthopnea Gastrointestinal: denies: nausea, vomiting, diarrhea, constipation, abd pain, GI bleeding Musculoskeletal: denies: pain, tenderness, stiffness, swelling, arthritis/arthralgias Neurological: denies: numbness, syncope, seizure, weakness - Objective Allergies/Adverse Reactions: Allergies Allergy/AdvReac Type Severity Reaction Status Date / Time No Known Allergies Allergy Verified 07/16/20 13:49 Visit Medications: Current Medications Acetaminophen (Acetaminophen 325 Mg Tab) 650 mg PO Q4H PRN PRN Reason: Headache/Fever/Mild Pain (1-3) Last Admin: 07/24/20 15:07 Dose: 650 mg Documented by: Allopurinol (Allopurinol 100 Mg Tab) 100 mg PO DAILY [facility] Last Admin: 07/24/20 08:03 Dose: 100 mg Documented by: Amlodipine Besylate (Amlodipine 5 Mg Tab) 5 mg PO QAM [facility] Last Admin: 07/24/20 08:03 Dose: 5 mg Documented by: Aspirin (Aspirin 81 Mg Enteric Coated Tablet) 81 mg PO DAILY [facility] Last Admin: 07/24/20 08:04 Dose: 81 mg Documented by: Carvedilol (Carvedilol 6.25 Mg Tab) 6.25 mg PO BID-[facility] Last Admin: 07/24/20 08:04 Dose: 6.25 mg Documented by: Dextrose/Water (Dextrose 50% Abboject 50 Ml Syringe) 25 gm SLOW IVP PRN PRN PRN Reason: Hypoglycemia Enoxaparin Sodium (Enoxaparin Sodium 40 Mg/0.4 Ml Syringe) 40 mg SC 0900 [facility] Last Admin: 07/24/20 08:04 Dose: 40 mg Documented by: Famotidine (Famotidine 20 Mg Tab) 20 mg PO BID [facility] Last Admin: 07/24/20 08:03 Dose: 20 mg Documented by: Glucagon (Glucagon 1 Mg/Ml Vial) 1 mg IM PRN PRN PRN Reason: Hypoglycemia Hydralazine HCl (Hydralazine 25 Mg Tab) 75 mg PO TID [facility] Last Admin: 07/24/20 15:07 Dose: 75 mg Documented by: Hydralazine HCl (Hydralazine 20 Mg/Ml Vial) 10 mg SLOW IVP Q4H PRN PRN Reason: SBP Greater Than 180 Hydrochlorothiazide (Hydrochlorothiazide 25 Mg Tab) 25 mg PO DAILY [facility] Last Admin: 07/24/20 08:02 Dose: 25 mg Documented by: Dextrose/Water (D5w) 1,000 mls @ 0 mls/hr IV .Q0M PRN PRN Reason: Hypoglycemia Insulin Human Lispro (Humalog 300 Units/3 Ml Vial) 0 units SC .MILD SLIDING SCALE PRN PRN Reason: Mild Correctional Scale Last Admin: 07/24/20 11:48 Dose: 3 unit Documented by: Labetalol HCl (Labetalol Hcl 100 Mg/20 Ml Vial) 20 mg SLOW IVP Q1H PRN PRN Reason: BP > 220/110 Meclizine HCl (Meclizine Hcl 25 Mg Tab) 25 mg PO Q8H PRN PRN Reason: Dizziness Last Admin: 07/23/20 12:02 Dose: 25 mg Documented by: Miscellaneous Medication (Electrolyte Replacement Protocol 1 Each) 1 each FS ASDIR [facility] Olmesartan (Olmesartan Medoxomil 20 Mg Tab) 40 mg PO DAILY [facility] Potassium Chloride (Potassium Chloride 10 Meq Tab) 10 meq PO QAM-WM [facility] Last Admin: 07/24/20 08:03 Dose: 10 meq Documented by: Rosuvastatin Calcium (Rosuvastatin 5 Mg Tab) 5 mg PO HS [facility] Last Admin: 07/23/20 21:00 Dose: 5 mg Documented by: Sodium Chloride (Flush - Normal Saline 10 Ml Syringe) 10 ml IVF PRN PRN PRN Reason: Saline Flush Last Admin: 07/22/20 20:52 Dose: 10 ml Documented by: Tramadol HCl (Tramadol Hcl 50 Mg Tab) 50 mg PO Q6H PRN PRN Reason: Pain Last Admin: 07/24/20 01:01 Dose: 50 mg Documented by: Vital Signs & Weight: Vital Signs Temp Pulse Resp BP BP BP Pulse Ox 07/24/20 15:10 160/90 H 07/24/20 11:40 97.7 F 71 20 140/79 98 07/24/20 07:56 98.0 F 73 15 147/88 H 162/94 H 168/100 H 98 07/24/20 07:35 98.0 F 73 15 151/92 H 98 07/24/20 04:00 97.9 F 71 18 155/78 H 95 Admit Weight 337 lb 11.968 oz Weight 337 lb 11.968 oz - Physical Exam General: alert & oriented x3, appears well HEENT: mucus membranes moist Neck: supple neck Cardiac: regular rate and rhythm Lungs: clear to auscultation Neuro: grossly intact Abdomen: soft - Labs Result Diagrams: 07/22/20 04:18 07/22/20 04:18 Troponin/CKMB Troponin I 0.018 ng/mL (< 0.028) 07/21/20 00:26 - Assessment/Plan Assessment/Plan: 1. Uncontrolled HTN 2. Obesity Norvasc added and Coreg increased today by RG. Continue to monitor. May need to increase bblocker again tomorrow. Needs to be discharged on Benicar and not losartan (currently receiving losartan as on formulary).
--- NOTE | 2020-07-24 20:18 | PDOC.HOSPP ---
- Subjective Encounter Date: 07/24/20 Encounter Time: 18:00 Subjective: Patient seen and examined for generalized weakness with dizziness and hypertensive crisis. Continues to have intermittent headache. Denies any nausea or vomiting. No chest pain or palpitations reported. - Objective Vital Signs & Weight: Vital Signs (12 hours) Temp Pulse Resp BP BP Pulse Ox 07/24/20 15:10 160/90 H 07/24/20 15:05 98.4 F 84 17 99 07/24/20 11:40 97.7 F 71 20 140/79 98 Weight Admit Weight 337 lb 11.968 oz Weight 337 lb 11.968 oz I&O: 07/23/20 07/24/20 07/25/20 06:59 06:59 06:59 Intake Total 480 1180 720 Balance 480 1180 720 Result Diagrams: 07/22/20 04:18 07/22/20 04:18 Additional Labs: Accuchecks 07/24/20 07/24/20 07/24/20 16:10 10:24 06:13 POC Glucose 151 H 212 H 146 H 07/23/20 20:59 POC Glucose 164 H EKG Reviewed by me: Yes (Sinus rhythm on telemetry) Hospitalist ROS - Review of Systems Respiratory: denies: cough, dry, shortness of breath, hemoptysis, SOB with excertion, pleuritic pain, sputum, wheezing, other Cardiovascular: denies: chest pain, palpitations, orthopnea, paroxysmal noc. dyspnea, edema, light headedness, other - Medication Medications: Active Medications Generic Name Dose Route Start Last Admin Trade Name Freq PRN Reason Stop Dose Admin Acetaminophen 650 mg 07/21/20 02:33 07/24/20 15:07 Acetaminophen 325 Mg Tab PO 650 mg Q4H PRN Administration Headache/Fever/Mild Pain (1-3) Allopurinol 100 mg 07/21/20 09:00 07/24/20 08:03 Allopurinol 100 Mg Tab PO 100 mg DAILY ELLEN Administration Amlodipine Besylate 5 mg 07/24/20 09:00 07/24/20 08:03 Amlodipine 5 Mg Tab PO 5 mg QAM ELLEN Administration Aspirin 81 mg 07/21/20 09:00 07/24/20 08:04 Aspirin 81 Mg Enteric Coated Tablet PO 81 mg DAILY ELLEN Administration Carvedilol 6.25 mg 07/24/20 08:00 07/24/20 17:31 Carvedilol 6.25 Mg Tab PO 6.25 mg BID-WM ELLEN Administration Enoxaparin Sodium 40 mg 07/21/20 09:00 07/24/20 08:04 Enoxaparin Sodium 40 Mg/0.4 Ml Syringe SC 40 mg 0900 ELLEN Administration Famotidine 20 mg 07/21/20 09:00 07/24/20 08:03 Famotidine 20 Mg Tab PO 20 mg BID ELLEN Administration Hydralazine HCl 75 mg 07/22/20 15:00 07/24/20 15:07 Hydralazine 25 Mg Tab PO 75 mg TID ELLEN Administration Hydrochlorothiazide 25 mg 07/24/20 09:00 07/24/20 08:02 Hydrochlorothiazide 25 Mg Tab PO 25 mg DAILY ELLEN Administration Insulin Human Lispro 0 units 07/21/20 05:01 07/24/20 17:31 Humalog 300 Units/3 Ml Vial SC 2 unit .MILD SLIDING SCALE PRN Administration Mild Correctional Scale Meclizine HCl 25 mg 07/21/20 02:33 07/23/20 12:02 Meclizine Hcl 25 Mg Tab PO 25 mg Q8H PRN Administration Dizziness Potassium Chloride 10 meq 07/21/20 08:00 07/24/20 08:03 Potassium Chloride 10 Meq Tab PO 10 meq QAM-WM ELLEN Administration Rosuvastatin Calcium 5 mg 07/21/20 21:00 07/23/20 21:00 Rosuvastatin 5 Mg Tab PO 5 mg HS ELLEN Administration Sodium Chloride 10 ml 07/21/20 02:28 07/22/20 20:52 Flush - Normal Saline 10 Ml Syringe IVF 10 ml PRN PRN Administration Saline Flush Tramadol HCl 50 mg 07/21/20 04:35 07/24/20 18:26 Tramadol Hcl 50 Mg Tab PO 50 mg Q6H PRN Administration Pain - Exam General Appearance: NAD Neck: supple, no JVD Heart: RRR, no gallops Respiratory: no wheezes, no ronchi Gastrointestinal: non-tender, normal bowel sounds Extremities: no cyanosis, no clubbing Neurological: no new deficit Hosp A/P - Plan DVT proph w/SCDs Dizzinessprobably due to uncontrolled hypertension Hypertensive urgency Diabetes mellitus type 2 Hypomagnesemia Morbid obesity with a BMI 48.5 Suspected obstructive sleep apnea Physical deconditioning Plan: Carvedilol dose increased. Continue amlodipine with hydrochlorothiazide. Continue current dose of hydralazine. Continue Benicar. Patient currently lives alone at home and does not feel safe due to persistent dizziness. Physical therapy also recommended inpatient rehab. Will consult protective services case worker echocardiogram reviewed. Continue other medications as above
[2020-07-24] MEDS: Rosuvastatin 5 MG TAB PO SCH (20:56)
[2020-07-25] MEDS: HumaLOG 300 UNITS/3 ML VIAL SC PRN ×2 (06:05→11:15)
[2020-07-25] MEDS: traMADol HCl 50 MG TAB PO PRN (06:10)
[2020-07-25] MEDS: Amlodipine 5 MG TAB PO SCH (08:38)
[2020-07-25] MEDS: Potassium Chloride 10 MEQ TAB PO SCH (08:38)
[2020-07-25] MEDS: Carvedilol 6.25 MG TAB PO SCH (08:38)
[2020-07-25] MEDS: Famotidine 20 MG TAB PO SCH (08:38)
[2020-07-25] MEDS: Aspirin 81 mg Enteric Coated Tablet PO SCH (08:38)
[2020-07-25] MEDS: Allopurinol 100 MG TAB PO SCH (08:38)
[2020-07-25] MEDS: Enoxaparin Sodium 40 MG/0.4 ML SYRINGE SC SCH (08:39)
[2020-07-25] MEDS: Hydrochlorothiazide 25 MG TAB PO SCH (08:39)
[2020-07-25] MEDS: hydrALAZINE 25 MG TAB PO SCH (08:39)
[2020-07-25] MEDS: Acetaminophen 325 MG TAB PO PRN (08:39)
[2020-07-25 11:50] VITALS: BP 129/76; TEMP 97.3
--- NOTE | 2020-07-25 12:51 | PDOC.CPN ---
- Subjective Date: 07/25/20 Time: 13:05 Interval history: No overnight events. BP improved. - Review of Systems General: denies: fever/chills, weight/appetite/sleep changes, night sweats, fatigue Respiratory: denies: cough, congestion, shortness of breath, exercise intolerance Cardiovascular: denies: chest pain, palpitation, edema, paroxysmal nocturnal dyspnea, orthopnea Gastrointestinal: denies: nausea, vomiting, diarrhea, constipation, abd pain, GI bleeding Musculoskeletal: denies: pain, tenderness, stiffness, swelling, arthritis/arthralgias Neurological: denies: numbness, syncope, seizure, weakness - Objective Allergies/Adverse Reactions: Allergies Allergy/AdvReac Type Severity Reaction Status Date / Time No Known Allergies Allergy Verified 07/16/20 13:49 Visit Medications: Current Medications Acetaminophen (Acetaminophen 325 Mg Tab) 650 mg PO Q4H PRN PRN Reason: Headache/Fever/Mild Pain (1-3) Last Admin: 07/25/20 08:39 Dose: 650 mg Documented by: Allopurinol (Allopurinol 100 Mg Tab) 100 mg PO DAILY [facility] Last Admin: 07/25/20 08:38 Dose: 100 mg Documented by: Amlodipine Besylate (Amlodipine 5 Mg Tab) 5 mg PO QAM [facility] Last Admin: 07/25/20 08:38 Dose: 5 mg Documented by: Aspirin (Aspirin 81 Mg Enteric Coated Tablet) 81 mg PO DAILY [facility] Last Admin: 07/25/20 08:38 Dose: 81 mg Documented by: Carvedilol (Carvedilol 6.25 Mg Tab) 6.25 mg PO BID-[facility] Last Admin: 07/25/20 08:38 Dose: 6.25 mg Documented by: Dextrose/Water (Dextrose 50% Abboject 50 Ml Syringe) 25 gm SLOW IVP PRN PRN PRN Reason: Hypoglycemia Enoxaparin Sodium (Enoxaparin Sodium 40 Mg/0.4 Ml Syringe) 40 mg SC 0900 [facility] Last Admin: 07/25/20 08:39 Dose: 40 mg Documented by: Famotidine (Famotidine 20 Mg Tab) 20 mg PO BID [facility] Last Admin: 07/25/20 08:38 Dose: 20 mg Documented by: Glucagon (Glucagon 1 Mg/Ml Vial) 1 mg IM PRN PRN PRN Reason: Hypoglycemia Hydralazine HCl (Hydralazine 25 Mg Tab) 75 mg PO TID [facility] Last Admin: 07/25/20 08:39 Dose: 75 mg Documented by: Hydralazine HCl (Hydralazine 20 Mg/Ml Vial) 10 mg SLOW IVP Q4H PRN PRN Reason: SBP Greater Than 180 Hydrochlorothiazide (Hydrochlorothiazide 25 Mg Tab) 25 mg PO DAILY [facility] Last Admin: 07/25/20 08:39 Dose: 25 mg Documented by: Dextrose/Water (D5w) 1,000 mls @ 0 mls/hr IV .Q0M PRN PRN Reason: Hypoglycemia Insulin Human Lispro (Humalog 300 Units/3 Ml Vial) 0 units SC .MILD SLIDING SCALE PRN PRN Reason: Mild Correctional Scale Last Admin: 07/25/20 11:15 Dose: 2 unit Documented by: Labetalol HCl (Labetalol Hcl 100 Mg/20 Ml Vial) 20 mg SLOW IVP Q1H PRN PRN Reason: BP > 220/110 Meclizine HCl (Meclizine Hcl 25 Mg Tab) 25 mg PO Q8H PRN PRN Reason: Dizziness Last Admin: 07/23/20 12:02 Dose: 25 mg Documented by: Miscellaneous Medication (Electrolyte Replacement Protocol 1 Each) 1 each FS ASDIR [facility] Olmesartan (Olmesartan Medoxomil 20 Mg Tab) 40 mg PO DAILY [facility] Potassium Chloride (Potassium Chloride 10 Meq Tab) 10 meq PO QAM-WM [facility] Last Admin: 07/25/20 08:38 Dose: 10 meq Documented by: Rosuvastatin Calcium (Rosuvastatin 5 Mg Tab) 5 mg PO HS [facility] Last Admin: 07/24/20 20:56 Dose: 5 mg Documented by: Sodium Chloride (Flush - Normal Saline 10 Ml Syringe) 10 ml IVF PRN PRN PRN Reason: Saline Flush Last Admin: 07/22/20 20:52 Dose: 10 ml Documented by: Tramadol HCl (Tramadol Hcl 50 Mg Tab) 50 mg PO Q6H PRN PRN Reason: Pain Last Admin: 07/25/20 06:10 Dose: 50 mg Documented by: Vital Signs & Weight: Vital Signs Temp Pulse Resp BP BP Pulse Ox 07/25/20 11:23 97.3 F L 62 15 129/76 98 07/25/20 08:39 64 07/25/20 08:38 64 07/25/20 07:13 97.4 F L 64 16 139/97 H 99 07/25/20 03:40 97.8 F 90 20 145/88 H 99 Admit Weight 337 lb 11.968 oz Weight 337 lb 11.968 oz - Physical Exam General: alert & oriented x3, appears well, no apparent distress HEENT: mucus membranes moist Neck: supple neck Cardiac: regular rate and rhythm Lungs: clear to auscultation Neuro: grossly intact Abdomen: soft, non-tender Skin: clear - Labs Result Diagrams: 07/22/20 04:18 07/22/20 04:18 Troponin/CKMB Troponin I 0.018 ng/mL (< 0.028) 07/21/20 00:26 - Assessment/Plan Assessment/Plan: 1. Uncontrolled HTN 2. Obesity BP improved. Hopefully home in the near future as per primary care team. BAKARI 07/25 Pt seen and examined. Agree with the above Pt doiing better See changes in meds fu in 1-2 weeks in office
--- NOTE | 2020-07-25 17:13 | PDOC.DS.DS ---
Provider - Provider Date of Admission: 07/22/20 15:51 Date of Discharge: 07/25/20 Admitting Provider: Vinicius Webber MD Consultations: Cardiology Primary Care Physician: Nannette Lincoln MD Course - Hospital Course Hospital Course: Patient is a 74-year-old female with hypertension, diabetes mellitus type 2 and obesity presented to the emergency room with generalized weakness and dizziness. Her work-up was consistent with hypertensive crisis with persistent dizziness. Please refer to the history and physical for further details. The patient was admitted to the hospital with a diagnosis of hypertensive crisis causing dizziness. She continued to have uncontrolled blood pressure for which cardiology was consulted. Her medications have been optimized by cardiology. Blood pressure at discharge is 129/76. Her dizziness has significantly improved. She will be discharged home with home health care. Echocardiogram showed ejection fraction 55 to 60% with mild concentric left ventricular hypertrophy with diastolic dysfunction, mild mitral regurgitation and mild tricuspid regurgitation. Final diagnosis: Dizzinessprobably due to uncontrolled hypertension Hypertensive urgency Diabetes mellitus type 2 Hypomagnesemia Morbid obesity with a BMI 48.5 Suspected obstructive sleep apneasleep study as outpatient is recommended. Physical deconditioning Resuscitation Status: 07/21/20 06:51 Resuscitation Status Routine Resuscitation Status: DNAR: NO Resuscitation Discussed with: patient, nurse - Labs Lab Results: 07/22/20 04:18 07/22/20 04:18 - Physical Exam Vitals: Vital Signs (12 hours) Temp Pulse Resp BP Pulse Ox 07/25/20 11:23 97.3 F L 62 15 129/76 98 07/25/20 08:39 64 07/25/20 08:38 64 07/25/20 07:13 97.4 F L 64 16 139/97 H 99 Weight Admit Weight 337 lb 11.968 oz Weight 337 lb 11.968 oz Physical Exam: The patient was seen and examined on the day of discharge. Plan - Discharge Medications Prescriptions: hydrALAZINE HCl [Hydralazine HCl] 50 mg PO Q6HR #120 tablet Meclizine HCl [Antivert] 25 mg PO Q8H PRN #20 tab PRN Reason: Dizziness Carvedilol [Coreg] 6.25 mg PO BID-WM #60 tab Hydrochlorothiazide 25 mg PO DAILY #30 tab Amlodipine [Norvasc] 5 mg PO QAM #30 tab Home Medications: Medication Instructions Recorded Confirmed Type Allopurinol 100 mg PO DAILY 03/06/18 07/21/20 History Rosuvastatin [Crestor] 5 mg PO HS 03/06/18 07/21/20 History Cholecalciferol (Vitamin D3) 5,000 unit PO DAILY 03/31/19 07/21/20 History [Vitamin D3] Olmesartan Medoxomil [Benicar] 40 mg PO DAILY 03/31/19 07/21/20 History traMADol HCl [Tramadol HCl] 50 mg PO PRN PRN 03/31/19 07/21/20 History Aspirin [Ecotrin Low Strength] 81 mg PO DAILY tab 04/05/19 07/21/20 Rx Glimepiride [Amaryl] 2 mg PO DAILY #0 04/05/19 07/21/20 Rx Amlodipine [Norvasc] 5 mg PO QAM #30 tab 07/25/20 Rx Carvedilol [Coreg] 6.25 mg PO BID-WM #60 tab 07/25/20 Rx Hydrochlorothiazide 25 mg PO DAILY #30 tab 07/25/20 Rx Meclizine HCl [Antivert] 25 mg PO Q8H PRN #20 tab 07/25/20 Rx hydrALAZINE HCl [Hydralazine HCl] 50 mg PO Q6HR #120 tablet 07/25/20 Rx Allergies: No Known Allergies Allergy (Verified 07/16/20 13:49) - Follow up Plan Referrals: Nannette Lincoln MD [Primary Care Provider] - 7 Days Disposition: HOME HEALTH Quality - Care Measures CORE MEASURES:: N/A
== END 2020-07-25 15:36 | disposition home health service (06) | DRG 305 ==
LOC: ERS 23:52 → INTOOBSV 07-21 02:08 → 2SE 07-21 02:08 → OBSVTOIN 07-22 15:51
PROVIDERS: ADMIT Internal Medicine; ATTEND Internal Medicine
DX: I16.0 Hypertensive urgency (principal); Z68.42 Body mass index [BMI] 45.0-49.9, adult; I10 Essential (primary) hypertension; E78.5 Hyperlipidemia, unspecified; E11.9 Type 2 diabetes mellitus without complications; Z90.49 Acquired absence of other specified parts of digestive tract; Z79.899 Other long term (current) drug therapy; Z79.82 Long term (current) use of aspirin; Z86.73 Personal history of transient ischemic attack (TIA), and cerebral infarction without residual deficits; Z90.710 Acquired absence of both cervix and uterus; Z87.891 Personal history of nicotine dependence; T46.3X5A Adverse effect of coronary vasodilators, initial encounter; Y92.9 Unspecified place or not applicable; E66.01 Morbid (severe) obesity due to excess calories; G47.33 Obstructive sleep apnea (adult) (pediatric); I34.0 Nonrheumatic mitral (valve) insufficiency; I07.1 Rheumatic tricuspid insufficiency; Z20.828 Contact with and (suspected) exposure to other viral communicable diseases; E83.42 Hypomagnesemia; G44.40 Drug-induced headache, not elsewhere classified, not intractable; R53.81 Other malaise
CPT/HCPCS: 36415; 36416; 51701; 70450; 70496; 70498; 80048; 80053; 80061; 81003; 82607; 83036; 83735; 84443; 84484; 85025; 86780; 87635; 90471; 90732; 93005; 93306; 96372; 96374; G0009; G0378; J1650; J3475; Q9967; U0003

== ENCOUNTER 2021-04-23 09:34 | Outpatient (CLI) | payer MEDICARE ==
[2021-04-24 13:29] LABS: SARS-CoV-2 PCR by NAA Not Detected (NotDetected)
== END 2021-04-23 09:35 | disposition home or self-care (01) ==
LOC: LABBT 09:34
PROVIDERS: ATTEND Internal Medicine Gastroenterology
DX: Z01.812 Encounter for preprocedural laboratory examination (principal); R19.7 Diarrhea, unspecified; Z86.010 Personal history of colon polyps; Z20.822 Contact with and (suspected) exposure to COVID-19
CPT/HCPCS: U0003; U0005

== ENCOUNTER 2021-04-28 12:22 | Day surgery (SDC) | payer MEDICARE ==
[2021-04-27 11:43] VITALS: BMI 41.8
[2021-04-28] MEDS ORDERED: PROPOFOL 200 MG/20 ML VIAL ONE (14:36)
[2021-04-28] MEDS ORDERED: Lidocaine 1% PF 5 ML VIAL ONE (14:36)
== END 2021-04-28 15:53 | disposition home or self-care (01) ==
LOC: SDC 12:22
PROVIDERS: ATTEND Internal Medicine Gastroenterology
PROC: 0DBL8ZX Excision of Transverse Colon, Via Natural or Artificial Opening Endoscopic, Diagnostic (ICD-10-PCS; principal; 2021-04-28)
DX: Z12.11 Encounter for screening for malignant neoplasm of colon (principal); D12.3 Benign neoplasm of transverse colon; K57.30 Diverticulosis of large intestine without perforation or abscess without bleeding; K58.0 Irritable bowel syndrome with diarrhea; E11.9 Type 2 diabetes mellitus without complications; I10 Essential (primary) hypertension; Z86.010 Personal history of colon polyps; Z79.4 Long term (current) use of insulin; Z79.82 Long term (current) use of aspirin; Z79.899 Other long term (current) drug therapy; Z91.013 Allergy to seafood; Z91.041 Radiographic dye allergy status
CPT/HCPCS: 36416; 88305; J2704

== ENCOUNTER 2022-02-14 12:09 | Emergency (ER) | payer MEDICARE ==
[2022-02-14] MEDS ORDERED: Metoclopramide HCl 10 MG/2 ML VIAL ONE (13:16)
[2022-02-14] MEDS ORDERED: Dexamethasone 10 MG/ML VIAL ONE (13:16)
[2022-02-14] MEDS ORDERED: diphenhydrAMINE 50 MG/ML VIAL ONE (13:16)
[2022-02-14 13:48] LABS: Bilirubin Negative (Negative); Blood, Urine Negative (Negative); Clarity Clear (Clear); Glucose, Urine (Dipstick) Normal (Negative); Ketone, Urine Negative (Negative); Leukocyte Negative Leu/uL (Negative); Nitrite Negative (Negative); Protein, Urine (Dipstick) Negative (Neg-Trace); Specific Gravity, Urine 1.007 (1.002-1.036); Urobilinogen Normal mg/dL (Less than 2)
[2022-02-14 14:14] LABS: #Basophils 0.1 thou/uL (0.0-0.2); #Eosinphils 0.2 thou/uL (0.0-0.7); #Lymphocytes 2.7 thou/uL (1.20-3.40); #Monocytes 0.8 thou/uL (0.11-0.59); #Neutrophils 4.9 thou/uL (1.40-6.50); %Basophils 0.8 % (0.0-1.0); %Eosinophils 2.5 % (0.0-10.0); %Lymphocytes 30.9 % (21.0-51.0); %Monocytes 9.5 % (0.0-10.0); %Neutrophils 56.3 % (42.0-75.0); Hemoglobin 14.3 g/dL (12.0-16.0); Mean Corpuscular HGB CONC 31.8 g/dL (32.0-36.0); Mean Corpuscular Hemoglobin 29.7 pg (27.0-31.0); Mean Corpuscular Volume 93.3 fL (78.0-98.0); Mean Platelet Volume 8.3 fL (7.4-10.4); Platelet Count 209 thou/uL (130-400); RBC Distribution Width 13.3 % (11.5-14.5); Red Blood Cell (RBC) Count 4.81 mill/uL (4.20-5.40); White Blood Cell (WBC) Count 8.7 thou/uL (4.8-10.8)
[2022-02-14] MEDS ORDERED: predniSONE 20 MG TAB ONE (14:16)
[2022-02-14] MEDS ORDERED: Metoclopramide HCl 10 MG TAB ONE (14:16)
[2022-02-14] MEDS ORDERED: traMADol HCl 50 MG TAB ONE (14:16)
[2022-02-14 14:26] LABS: ALT (SGPT) 11 U/L (8-55); AST (SGOT) 14 U/L (5-34); Albumin 3.9 g/dL (3.4-4.8); Alkaline Phosphatase 81 U/L (40-110); Anion Gap 15 mmol/L (10-20); BUN (Urea Nitrogen) 14 mg/dL (9.8-20.1); Bilirubin, Total 0.5 mg/dL (0.2-1.2); CK (CPK) 75 U/L (29-168); Calc. Creatinine Clearance 0 mL/min (70-130); Calcium 10.1 mg/dL (7.8-10.44); Carbon Dioxide 26 mmol/L (23-31); Chloride 108 mmol/L (98-107); Estimated GFR 71; Globulin 3.1 g/dL (2.4-3.5); Glucose 79 mg/dL (83-110); Lipase 6 U/L (8-78); Potassium 5.1 mmol/L (3.5-5.1); Sodium 144 mmol/L (136-145)
== END 2022-02-14 15:52 | disposition home or self-care (01) ==
LOC: ERS 12:09
DX: R51.9 Headache, unspecified (principal); E11.9 Type 2 diabetes mellitus without complications; I10 Essential (primary) hypertension; Z79.899 Other long term (current) drug therapy; Z79.82 Long term (current) use of aspirin; E78.5 Hyperlipidemia, unspecified; Z87.891 Personal history of nicotine dependence
CPT/HCPCS: 36415; 70450; 71045; 80053; 81003; 82550; 83690; 84484; 85025; 93005; J1100; J1200; J2765; J7512

== ENCOUNTER 2022-12-09 09:49 | Outpatient (CLI) | payer MEDICARE | END 2022-12-09 09:50 | disposition home or self-care (01) | LOC: BICMAMMO 09:49 | PROVIDERS: ATTEND Internal Medicine | DX: Z12.31 Encounter for screening mammogram for malignant neoplasm of breast (principal) | CPT/HCPCS: 77063; 77067 ==